=== PATIENT | female | born 1965 | race Caucasian/White ===

== ENCOUNTER → 2023-07-02 14:41 | Outpatient (REF) | payer BC, SELFPAY ==
[2023-07-02 16:20] LABS: INR 1.67; PT 19.8 Sec (11.4-14.6)
[2023-07-02 16:21] LABS: APTT 53.4 Sec (23.4-35.0)
== END ==
LOC: REG 14:41
PROVIDERS: ATTENDING PHYSICIAN Nurse Practitioner; REFERRING PHYSICIAN Internal Medicine Gastroenterology
DX: D69.6 Thrombocytopenia, unspecified (principal); R79.1 Abnormal coagulation profile
CPT/HCPCS: 36415; 85610; 85730

== ENCOUNTER 2023-07-03 23:28 | Inpatient (IN) | payer BC, SELFPAY ==
[2023-07-03 17:50] VITALS: BP 137/71
[2023-07-03 17:52] VITALS: BP 137/71
[2023-07-03 18:08] LABS: % Basophils 0.6 % (0-2); % Eosinophils 5.3 % (0-6); % Immature Granulocytes 0.6 % (0-0.5); % Lymphocytes 9.9 % (20.5-51.1); % Monocytes 6.2 % (1.7-9.3); % Neutrophils 77.4 % (42.2-75.2); Absolute Basophils 0.1 10^3/uL (0-0.2); Absolute Eosinophils 0.8 10^3/uL (0-0.7); Absolute Immature Granulocytes 0.1 10^3/uL (0-0.05); Absolute Lymphocytes 1.4 10^3/uL (1.2-3.4); Absolute Monocytes 0.9 10^3/uL (0.1-0.6); Absolute Neutrophils 11.2 10^3/uL (1.4-6.5); Hematocrit 29.5 % (37.0-47.0); Hemoglobin 9.5 g/dL (12.0-16.0); Mean Corp Hgb Conc. 32.2 g/dL (33.0-37.0); Mean Corpuscular Hgb 25.8 pg (27.0-31.0); Mean Corpuscular Volume 80.2 fL (81.0-99.0); Mean Platelet Volume 12.2 fL (7.4-10.4); Nucleated Red Blood Cells % 0 %; Platelet Count 144 10^3/uL (130-400); Red Blood Cell Count 3.68 10^6/uL (4.20-5.40); Red Cell Dist. Width 19.4 % (11.5-14.5); White Blood Cell Count 14.4 10^3/uL (4.8-10.8)
[2023-07-03 18:33] LABS: ALT (SGPT) 26 U/L (0-35); AST (SGOT) 41 U/L (14-36); Albumin 2.4 g/dl (3.5-5.0); Alkaline Phosphatase 112 U/L (38-126); Blood Urea Nitrogen 4 mg/dl (7-17); Calcium 8.4 mg/dl (8.4-10.2); Carbon Dioxide 29 mmol/L (22-30); Chloride 97 mmol/L (98-107); Estimated Creatinine Clearance 123 ml/min; Glucose 45 mg/dl (70-99); NT-proBNP 546 pg/ml; Sodium 135 mmol/L (135-145); Total Bilirubin 1.1 mg/dl (0.2-1.3); Total Protein 6.4 g/dl (6.3-8.2); Troponin I < 0.012 ng/ml; eGFR > 60.00
[2023-07-03 19:00] VITALS: BP 155/78
[2023-07-03 19:12] LABS: Glucose - Point of Care 48 mg/dl (70-99)
--- NOTE | 2023-07-03 19:18 | PHANOTE ---
med rc note- patient stated she been taking a really old bottle of Dilaudid 4mg as needed but not in pdmp and xanax that ran put but may be her husbands
[2023-07-03 19:46] LABS: Glucose - Point of Care 61 mg/dl (70-99)
[2023-07-03] MEDS: KCL 40 MEQ PO (20:29)
[2023-07-03] MEDS: MAXIPIME 2000 MG IV (20:29)
[2023-07-03] MEDS: D5/0.9% SODIUM CHLORIDE 1000 IV (20:30)
[2023-07-03] MEDS: DILAUDID 1 MG IV (20:30)
[2023-07-03] MEDS: DUONEB 3 ML INH (20:42)
[2023-07-03 21:01] VITALS: BP 121/74
--- NOTE | 2023-07-03 21:41 | ED.GENMED ---
History of Present Illness
General
Chief Complaint: Breathing Problem
Source: patient, records and spouse
Exam Limitations: none
Time Seen by Provider: 07/03/23 19:34
Nursing documentation reviewed up to this point in time: agreed with
Travel History
Have you had any contact with someone who has COVID-19?: No
Do you have any symptoms of coronavirus? Fever > 100 degrees, chills, cough, shortness of breath, sore throat, loss of taste or smell, muscle aches, or headache?: Yes
Symptoms:: fever last pm, chills
History of Present Illness
History of Present Illness:
Patient is a 57-year-old female with a history of multiple severe medical problems as well as intubation for pneumonia and multiple episodes of pneumonia who presents to the emergency department with increasing shortness of breath, orthopnea and
pulse ox of 84% this morning. Patient had a fever last night of 101.4. Patient has chills. Patient has noted increased lower extremity swelling. Patient denies any chest pain. Patient denies any GI symptoms. Patient has a G-tube that is
supposed to be removed in the next week and was seen by GI yesterday. Patient also has a colostomy and chronic indwelling Welch.
Past History
Past History
ED Past Medical History: Fibromyalgia, GERD, HTN, Hypercholesterolemia, IDDM, Psychiatric (Depression, anxiety), Other (sciatica, PNA, GI bleeding, IBS) and Other (Cauda equina with chronic lower extremity paralysis-wheelchair bound/bedridden, RSD,
status lichen planus, Cellulitis, PCOS, Sjogrens, stage IV sacral decubitus ulcer)
ED Past Surgical History: Cholecystectomy, Orthopedic (Lumbar laminectomy April 2017, spinal fusion, right ankle surgery, Amp 2nd toe Left foot. Right great toe amputation), Urological (Suprapubic catheter) and Other (TIPS procedure, Colostomy,
right toe amputation )
Social History
Tobacco: Non-smoker
Alcohol: None
Drug: Marijuana
Personal:
Living: with family
Employment: Not employed
Family History
Family History: Other (Father with diabetes and coronary disease, mother with rheumatoid arthritis)
Review of Systems
Review of Systems
All Other Systems: ROS reviewed and negative except as documented in HPI and ROS
Constitutional: Reports fever, fatigue and chills
EENT: Reports no symptoms
Respiratory: Reports cough and trouble breathing
Cardiac: Reports no symptoms
ABD/GI: Reports no symptoms
: Reports no symptoms
Musculoskeletal: Reports edema
Skin: Reports no symptoms
Neurological: Reports no symptoms
Hematologic/Lymphatic: Reports no symptoms
Phy Exam
Physical Exam
Physical Exam:
Physical Exam
General: moderate distress, alert and appropriate, well nourished but appears chronically ill, well hydrated
HENT: Normocephalic, supple with no lymphadenopathy, no thyromegaly
Eyes: Clear sclera, conjuctiva without injection
Heart: Regular rhythm and tachycardic rate. No S3, S4. No murmur. No NVD
Lungs: moderate respiratory distress, no stridor, lung sounds with rhonchi and wheezing on the right
Abdomen: Soft, nontender, with G-tube that has localized discharge but no cellulitis and functioning colostomy BS good
Neuro: Alert and oriented x 3, CN II - XII intact, no motor focality
Skin: Lower legs with bilateral dressings
Psychiatric: well kept. interactive and cooperative
Extremities: No cyanosis, tenderness. Lower legs are wrapped bilaterally but edematous and appears to be chronic
Scores
Heart Failure Risk
Heart Failure Risk Score: Not Applicable
Heart Score for Chest Pain Patients
STEMI patient?: Not applicable
Withdrawal Assessment of Alcohol
Withdrawal Assessment Completed?: Not applicable
Course
Orders/Labs/Results
Orders:
Orders
07/03/23 17:58
Electrocardiogram (*1) Urgent
Reason for Study: Other
Other Reason for Exam: Respiratory Distress
Cardiac Monitoring- Treatment ONCE
EKG- Treatment ONCE
IV Insert/Care/Rem.- Treatment PRN
CR Chest - 2 Views Urgent
Comment:
Reason For Exam: respiratory distress
O2 Therapy [RESP] Urgent
Titrate/Wean O2 to maintain O2 sat greater than (%): 93
Special Instructions: TO MAINTAIN CONTINUOUS O2 SATS >/= 93%
Pulse Ox/cont/shift [RESP] Urgent
Quantity: 1
Special Instructions: continuous pulse ox
07/03/23 18:00
Complete Blood Count/With Diff Urgent
Comprehensive Metabolic Panel Urgent
NT-proBNP Urgent
Troponin I Urgent
07/03/23 19:49
Ipratropium/Albuterol Sulfate [Duoneb] 3 ml INH R NOW ONE
Potassium Chloride [KCl] 40 meq PO NOW STA
07/03/23 19:55
Cefepime HCl [Maxipime] 2,000 mg IV NOW STA
07/03/23 20:00
Dextrose 5%/0.9%Sodchl 1000 ml [D5/0.9% Sodium Chloride] 1,000 ml IV 200 mls/hr
07/03/23 20:25
HYDROmorphone [Dilaudid] 1 mg IV NOW STA
07/03/23 21:00
KCl 40 Meq/D5.9%Sodchl 1000 ml [D5/0.9% with KCL 40 MEQ] 40 meq in 1,000 ml IV 200 mls/hr
07/03/23 22:30
Accucheck [Bedside Glucose Monitoring] DIRECTED
Frequency: Other frequency
Other frequency: now
07/03/23 22:48
DIETARY CONSULT Routine
Reason for Consult: hypoalbumenia
Urine Culture Reflexed from UA [Urinalysis Reflex To Culture] Urgent
Date Specimen was Collected: 07/03/23
Time Specimen was Collected: 23:39
07/03/23 22:59
Consult Infectious Disease [INFECTIOUS DISEASE CONSULT] Routine
Consulting Provider: Janet Amato
Was physician already notified: No
Reason for consult: sepss bilat pna
Consult Notification Routine
Specialty to Notify: Infectious Disease
WOUND/OSTOMY CONSULT Routine
Reason for Consult: sacral decub, gtube pus
07/03/23 23:00
Admit/Transfer Patient As Directed
Co-Sign Provider:
Level of Care: Inpatient admission
Assign to:: ICU
Physician / Group: abby daly
Diagnosis: sepsis 2/2 bilat pna,hypoxi resp fail sacral decub, hypoK, hypoglycemia
Reason for Hospitalization: sepsis 2/2 bilat pna,hypoxi resp fail sacral decub, hypoK, hypoglycemia
Expected length of stay greater than two midnights?: Yes
ELOS- Estimated Length of Stay in days: 5
I certify the patient meets the requirements for IP care: Yes
Code Status As Directed
Resuscitation Status: Full Code
07/03/23 23:05
Lactate Level [Lactic Acid] Routine
Blood Culture Q30M
SORAYA Source: Blood/Venous
Specimen Description:
Blood Culture Q30M
SORAYA Source: Blood/Venous
Specimen Description:
Wound Culture [Wound/Abscess/Other Culture] Urgent
SORAYA Source: Abdomen
Specimen Description:
Date Specimen was Collected: 07/03/23
Time Specimen was Collected: 22:48
Comment: gtube
07/03/23 23:06
Consult Notification Routine
Specialty to Notify: Marketing Financial Analyst
Marketing Financial Analyst Consult Routine
Consulting Provider: Blair Maloney
Was physician already notified: No
Reason for consult: sepsis /hypoxic resp failure 2/2 bilat pna
07/04/23 00:02
Acetaminophen [Tylenol] 650 mg PO Q4HPRN PRN
07/04/23 00:30
Acetylcysteine 10% [Mucomyst 10%] 4 ml INH R Q6HPRN PRN
Albuterol [ProAIR HFA INHALER] 1 puff INH R Q4HPRN PRN
Dextrose 50%-Water [Dextrose 50% Syringe] 12.5 grams IV [id number] PRN
Ferrous Sulfate [Feosol] 325 mg PO [id number]
Glucagon [GlucaGen] 1 mg IM PRN PRN
HydrOXYZINE [Atarax] 10 mg PO TIDPRN PRN
Ipratropium/Albuterol Sulfate [Duoneb] 3 ml INH R Q6HPRN PRN
Lactated Ringers [Lr] 1,000 ml IV 100 mls/hr
07/04/23 00:30
Activity As Directed
Activity Level: As Tolerated
Bedside Glucose Monitoring As Directed
Frequency: AC&HS
Comment: Change to q6h if pt on TPN, tube feeding or not eating
Intake/ Output As Directed
Frequency: Per unit guidelines
Vital Signs As Directed
Frequency: Per unit guidelines
Weight As Directed
Frequency: Daily
O2 Therapy [RESP] Routine
Nasal Cannula Liter Flow: 5 LPM
Titrate/Wean O2 to maintain O2 sat greater than (%): 92
Pulse Ox/spot Check [RESP] Routine
Quantity: 1
Rx Incentive Spirometry [RESP] Routine
Frequency: q1h while awake
Speech Therapy Eval & Treat Routine
DX Deep Vein Thrombosis Video Routine
DX Deep Vein Thrombosis Video Routine
07/04/23 06:00
Complete Blood Count/With Diff IN AM
Comprehensive Metabolic Panel IN AM
Meropenem [Merrem] 1,000 mg IV Q8H
07/04/23 07:30
Insulin Aspart Corrective Mod [Novolog Flexpen-Moderate Resistance] See Protocol SC AC
07/04/23 08:00
Ascorbic Acid [Vitamin C] 500 mg PO BID
Baclofen [Lioresal] 10 mg PO BID
Gabapentin [Neurontin] 600 mg PO TID
Lactulose [Duphalac/Chronulac] 10 grams PO BID
Rifaximin [Xifaxan] 550 mg PO BID
lidocaine 1 patch TOPICAL DAILY
magnesium oxide 400 mg PO BID
omeprazole 40 mg PO DAILY
oxybutynin chloride 15 mg PO DAILY
venlafaxine 225 mg PO DAILY
07/04/23 Dinner
1800 calorie (15 carb) Diabetic
07/04/23 18:00
Enoxaparin Sodium [Lovenox] 30 mg SC QPM
simvastatin [Zocor] 20 mg PO QPM
07/04/23 22:00
pramipexole 1.5 mg PO HS
07/05/23 06:00
Complete Blood Count/With Diff IN AM
Comprehensive Metabolic Panel IN AM
07/06/23 06:00
Complete Blood Count/With Diff IN AM
Comprehensive Metabolic Panel IN AM
07/07/23 06:00
Complete Blood Count/With Diff IN AM
Comprehensive Metabolic Panel IN AM
07/08/23 06:00
Complete Blood Count/With Diff IN AM
Comprehensive Metabolic Panel IN AM
Abnormal Lab Results
07/03/23 07/03/23 07/03/23
18:00 19:10 19:44
WBC 14.4 H 10^3/uL
(4.8-10.8)
RBC 3.68 L 10^6/uL
(4.20-5.40)
Hgb 9.5 L g/dL
(12.0-16.0)
Hct 29.5 L %
(37.0-47.0)
MCV 80.2 L fL
(81.0-99.0)
MCH 25.8 L pg
(27.0-31.0)
MCHC 32.2 L g/dL
(33.0-37.0)
RDW 19.4 H %
(11.5-14.5)
MPV 12.2 H fL
(7.4-10.4)
Abs Immat Gran (auto) 0.1 H 10^3/uL
(0-0.05)
Absolute Neuts (auto) 11.2 H 10^3/uL
(1.4-6.5)
Absolute Monos (auto) 0.9 H 10^3/uL
(0.1-0.6)
Absolute Eos (auto) 0.8 H 10^3/uL
(0-0.7)
Immature Gran % 0.6 H %
(0-0.5)
Neutrophils % 77.4 H %
(42.2-75.2)
Lymphocytes % 9.9 L %
(20.5-51.1)
Potassium 3.0 L mmol/L
(3.5-5.1)
Chloride 97 L mmol/L
(98-107)
BUN 4 L mg/dl
(7-17)
Creatinine 0.4 L mg/dL
(0.6-1.0)
Glucose 45 L* mg/dl
(70-99)
Lactic Acid
AST 41 H U/L
(14-36)
Albumin 2.4 L g/dl
(3.5-5.0)
POC Glucose 48 L* mg/dl 61 L mg/dl
(70-99) (70-99)
07/03/23 07/03/23
22:53 23:05
WBC
RBC
Hgb
Hct
MCV
MCH
MCHC
RDW
MPV
Abs Immat Gran (auto)
Absolute Neuts (auto)
Absolute Monos (auto)
Absolute Eos (auto)
Immature Gran %
Neutrophils %
Lymphocytes %
Potassium
Chloride
BUN
Creatinine
Glucose
Lactic Acid 2.3 H mmol/L
(0.7-2.0)
AST
Albumin
POC Glucose 231 H mg/dl
(70-99)
07/03/23 18:00
07/03/23 18:00
Vital Signs
Initial and Last Documented VS:
Initial Vital Signs
Temp Pulse Resp BP Pulse Ox
98.4 F 103 29 137/71 99
07/03/23 17:50 07/03/23 17:50 07/03/23 17:50 07/03/23 17:50 07/03/23 17:50
Last Documented Vital Signs
Temp Pulse Resp BP Pulse Ox
98.4 F 122 30 146/39 98
07/03/23 17:50 07/03/23 22:00 07/03/23 22:00 07/03/23 22:00 07/03/23 21:20
*Radiology
Radiology exam reviewed: radiology read reviewed (Severe diffuse pneumonia)
*Pulse Oximetry
Patient hypoxic: yes
Comment: 75% on room air
*EKG
Interpreted by ED Provider?: Yes
EKG Intrepretation Date: 07/03/23
EKG Intrepretation Time: 21:47
Interpretation: abnormal
Comparison EKG: changes noted
Heart Rate: 102
Rate: tachycardiac
Rhythm: sinus
[place]: left axis deviation
Interval: normal interval
QRS Pattern: normal QRS
Ischemia: non-specific ST changes
*[employer] Interpretation
Rate: tachycardiac
Interpretation: normal
Heart Rate: 106
Rhythm: sinus
*Critical Care Note
Total Time (30-74mins, 75-104mins- exclusive of procedures): 35 minutes
Update Note
Update Note:
Patient has been intubated before and had a trach. The pneumonia is severe on chest x-ray. Patient actually clinically looks better than chest x-ray. Patient will be admitted
ED Attending Note
-
Portions of this chart may have been created with voice recognition software.� Occasional wrong word or��sound alike� substitutions may have occurred due to the inherent limitations of voice recognition software.
Discharge Plan
Departure
Patient Disposition: Admit
Date of Disposition: 07/03/23
Time of Disposition: 21:48
Admit to: ICU
Admit to doctor: Hospitalist
Presentation/result/management discussed w/ accepting MD/DO: Hospitalist
Patient with high blood pressure during this ER visit?: Yes
Condition: Serious
Covid-19: Negative COVID-19
Discharge Problem:
Bilateral pneumonia, Hypoglycemia, Respiratory insufficiency
Interventions
Interventions:
*Risk Screen - Suicide Last Done: 07/03/23 17:50
*General Assessment Last Done: 07/03/23 17:50
*Neglect/Abuse Screening Last Done: 07/03/23 17:50
ED- Fall Risk Assessment Last Done: 07/03/23 21:33
*ED COVID-19 Vaccine History Last Done: 07/03/23 17:50
ED- Cardiac Assessment Last Done: 07/03/23 21:33
ED- Pulmonary Assessment Last Done: 07/03/23 21:33
[2023-07-03] MEDS: D5/0.9% with KCL 40 MEQ 1000 IV (21:44)
[2023-07-03 22:00] VITALS: BP 146/39
--- NOTE | 2023-07-03 22:22 | HPS.HSE ---
Addendum entered and electronically signed by Charles Bear MD 07/03/23 23:15:
I saw and examined the patient.
The LIVESTOCK COUNTER or PA's note was reviewed and I agree with the note.
Comment:
HPI
57F paraplegic due to Cauda equina syndrome, HX AspPNA, hypoxic RF, Chronic opiate dependence/chronic pain syndrome
CHOI cirrhosis , HX VDRF 2/2 PNA being Trached and PEGed who has gone through rehab and has had 1 episode of pneumonia since then and presents today with hypoxia as well as fever chills cough shortness of breath.
POX CXR for severe bilateral pneumonia on chest x-ray.
Patient's pulse ox was 75% on RA on arrival .
PMHX
Fibromyalgia, GERD, HTN, Hypercholesterolemia, IDDM, Psychiatric (Depression, anxiety), Other (sciatica, PNA, GI bleeding, IBS) and Other (Cauda equina with chronic lower extremity paralysis-wheelchair bound/bedridden, RSD, status lichen planus,
Cellulitis, PCOS, Sjogrens, stage IV sacral decubitus ulcer)
PSHX
Cholecystectomy, Orthopedic (Lumbar laminectomy April 2017, spinal fusion, right ankle surgery, Amp 2nd toe Left foot. Right great toe amputation), Urological (Suprapubic catheter) and Other (TIPS procedure, Colostomy, right toe amputation )
SHX;
Non-smoker
Alcohol: None
Drug: Marijuana
Personal:
Living: with family
FHX (Father with diabetes and coronary disease, mother with rheumatoid arthritis)
Reviewed VS: Afebrile Tachycardic Tacypnic Normotensive POx mid 90 on MFO2
PE
Gen: moderate distress, chronically ill looking
HEENT: anicteric
Neck: supple no JVD
Lungs: in respiratory distress, POS rhonchi and wheezing on the right filed
Cor: ST, RRR S1 S2
Abdomen: Soft, nontender, with G-tube
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
MS: Lower legs with bilateral dressings
Psych: appropriate
Data
WCC 14s
Hgb 9.5 - baseline mid 8s
nl Na
K 3.0 s/p PO KCL40 + IV KCL Vick 40 @ ER
CO2 29
nl Cr nl GFR
BG 49
NEG TPNI
pBNP 546
Alb 2.4
07/03/23 CXR
Severe bilateral multifocal pneumonia, progressed.
Last hospitalist admission 06/08/2023 - 06/12/2023
DC DIAGNOSES:
1. Acute hypoxic respiratory insufficiency.
2. Acute toxic metabolic encephalopathy.
3. Aspiration pneumonia.
4. Catheter associated urinary tract infection.
5. Chronic opiate dependence/chronic pain syndrome.
6. Non alcoholic steatohepatitis (CHOI) cirrhosis.
7. Stage IV sacral decubital wound.
8. Cauda equina syndrome with paraplegia.
ASSESSMENT & PLAN
Sepsis 2/2 B/l severe PNA
Acute Hypoxic RI supported by NC O2
On PO diet at home - despite PEG
Normotensive as of now
HX Asp PNA complicated by VDRF with Trach and PEG
Closed Trach now
HX chronic Welch Catheter associated UTI with Pseudomonas, Enterococcus ( VRE)
HX vanco allergy
- lactate
- BCx 2
- Empiric IV Meropenem for now
- LR IVF
- O2 support
- ST to screen for Nutrition
- ID consult for ABx of choice
Symptomatic hypoglycemia due to took Asaprt and missed meal
- cont. D5 NS
- Hypoglycemic protocol
- held Aspart and Lantus
- ISS mod
Unkempt, disheveled and poor personal hygine
Malodorous - from stage IV sacral decube ?
Pus underneath the PEG - local infection
Chr Colostomy
Chr stable moderate Anemic Hgb mid 9s
Severe hypoalbuminemia - suspect 2/2 cirrhosis
Chr FTT at home
- Shift Nurse Manager consult for interim PEG TF to improve Nutrition
- Wd care and colostomy consult
DVT Px: LMWH
Code: Full code
ICU
Total Critical Care Time___55__ minutes.
I was immediately available to the patient and staff. I personally examined, reviewed labs, diagnostic images/reports, interpretations, treatment plans, discussed patient care with other providers and family or caregivers (if patient is unable to
make decisions), entered orders as appropriate and documented the medical record.
Original Note:
Family Physician
-
Family Physician: Albert Glover
Chief Complaint
-
fever sob cough
History of Present Illness
57-year-old female from home who states she shortness of breath x 1 day with fever and chills 1 1.F at home. She reports a yellow-white productive cough for the past day. She reports taking her aspart insulin today but did not get a chance to eat
because the nurse came to visit. When she arrived in the ER she had a blood sugar of 45 and was given IV dextrose drip. She was given a sandwich and apple juice to eat. She also reports yellow pus around her G-tube site for the past 3 to 5 days
that she does flush it daily but does not use it to eat. She is unkept and disheveled. She reports she has a stage IV chronic sacral wound with wound care coming twice a week to her home.
Patient with past medical history of cauda equina syndrome/paraplegia bed and wheelchair-bound, sacral decub wound stage IV probing to bone, bilateral lower extremity wounds, chronic opiate dependence chronic pain syndrome/fibromyalgia, DM 2,
pneumonia, aspiration pneumonia, chronic dysphagia, RLS, HTN, HLD, IBS, Sjogren's syndrome, chronic normocytic anemia, obesity, CHOI cirrhosis
Medical History
Past Medical History
Past Medical History: Reports Other
Additional Past Medical History:
Migraines, sciatica, neuropathy, hypertension, hyperlipidemia, colostomy, GERD, IBS, portal hypertension, suprapubic catheter, PCOD, ambulatory dysfunction, DJD, fibromyalgia, osteoarthritis, RSD, diabetes, eczema, nonhealing ulcers decubitus,Lichen
planus, anxiety and depression, anemia, history of cauda equina syndrome, Sjogren's syndrome, follows Jennings's for sacral decubitus ulcer, ulcer of the right foot
Past Surgical History: Reports Other
Additional Past Surgical History:
suprapubic catheter, spinal fusion, cholecystectomy, ORIF left ankle, bilateral knee surgery, dermoid cyst surgery, shoulder arthroscopy, cardiac catheterization, debridement of the right foot, partial removal of the lymph node in the bilateral
thigh, left hematoma removal from the left thigh, distantly surgery, rhinoplasty, arthroscopy acute repair of the right meniscus in the right knee, left ovarian cyst surgery, D&C, arthroscopic removal of left knee, laminectomy and discectomy,
anterior-posterior spinal fusion L5-S1, surgical dilatation of the stenotic urethra, osteomyelitis the jaw with sepsis, amputation of the second toe, removal of second toe, colostomy, debridement of the wound, suprapubic urostomy, laminectomy, TIPS
procedure
Social History
Tobacco: Non-smoker
Alcohol: None
Drug: None
Personal:
Living: With Family
Employment: Disabled
Family History
Family History: Not pertinent
Allergies / Home Medications
Allergies reflects when Allergies were last updated in [employer].
Home Medications with original date entered in [employer]
Allergy/Medication List:
Allergies
Allergy/AdvReac Type Severity Reaction Status Date / Time
mirtazapine [From Remeron] Allergy Unknown Unknown Verified 06/08/23 18:07
adhesive Allergy Rash to Verified 06/08/23 18:07
Cardiac
Monitor
Sticker
vancomycin Allergy Unknown Verified 06/08/23 18:07
nitrofurantoin AdvReac Oral ulcers Verified 06/08/23 18:07
[From Macrobid]
sulfamethoxazole AdvReac bleeding Verified 06/08/23 18:07
[From Bactrim]
Home Medications
albuterol sulfate 90 mcg/actuation aerosol inhaler 1 puff inhalation R Q4HPRN PRN SOB/WHEEZE 12/14/18
rifaximin 550 mg tablet (Xifaxan) 550 mg PO BID Gastrointestinal Issue 08/15/21
baclofen 10 mg tablet 10 mg PO BID Muscle Spasms 03/03/22
insulin aspart U-100 100 unit/mL (3 mL) subcutaneous pen (Novolog FlexPen U-100 Insulin aspart) 20 unit SC AC Diabetes 03/03/22
lidocaine 5 % topical patch 1 patch topical DAILY right shoulder 03/03/22
ipratropium 0.5 mg-albuterol 3 mg (2.5 mg base)/3 mL nebulization soln 3 ml inhalation R Q6HPRN PRN sob 11/11/22
metoprolol succinate 50 mg tablet,extended release 24 hr (Toprol XL) 50 mg PO DAILY Blood Pressure 11/11/22
lactulose 20 gram/30 mL oral solution 10 g PO BID constipation 01/12/23
acetaminophen 325 mg tablet 650 mg PO Q6HPRN PRN mild pain/fever 06/08/23
acetylcysteine 100 mg/mL (10 %) solution 4 ml inhalation R Q6HPRN PRN sob 06/08/23
ascorbic acid (vitamin C) 500 mg tablet (Vitamin C) 500 mg PO BID Supplement 06/08/23
ferrous sulfate 325 mg (65 mg iron) tablet 325 mg PO MOWEFR Supplement 06/08/23
hydrocortisone 1 % topical cream (Preparation H Hydrocortisone) 1 applic topical QID PRN hemorrhoidal pain/discomfort 06/08/23
insulin aspart U-100 100 unit/mL (3 mL) subcutaneous pen (Novolog FlexPen U-100 Insulin aspart) 6 unit SC HS PRN snack 06/08/23
magnesium oxide 400 mg PO BID Electrolyte Repletion 06/08/23
methenamine hippurate 1 gram tablet 1 g PO BID infection prevention 06/08/23
multivitamin with minerals 1 tab PO DAILY Supplement 06/08/23
pramipexole 1.5 mg tablet 1.5 mg PO HS Neurological Condition 06/08/23
gabapentin 300 mg capsule 600 mg PO TID 07/03/23
hydroxyzine HCl 10 mg tablet 10 mg PO TIDPRN PRN itching 07/03/23
insulin glargine U-300 conc 300 unit/mL (3 mL) subcutaneous pen (Toujeo Max U-300 SoloStar) 50 unit SC HS 07/03/23
omeprazole 40 mg capsule,delayed release 40 mg PO DAILY 07/03/23
oxybutynin chloride 15 mg tablet,extended release 24 hr 15 mg PO DAILY 07/03/23
simvastatin 20 mg tablet (Zocor) 20 mg PO QPM 07/03/23
sodium hypochlorite 0.125 % solution (Dakin's Solution) 1 applic topical DAILY sacrum, thighs 07/03/23
venlafaxine 225 mg tablet,extended release 24 hr 225 mg PO DAILY 07/03/23
Review of Systems
-
History Source: Patient
A 12 point ROS was completed and negative except as noted: Yes
Constitutional: Reports Fever and Chills
EENT: Denies Sore Throat or Runny Nose
Respiratory: Reports Cough; Denies Trouble Breathing
Cardiac: Denies Chest Pain, Diaphoresis, Palpitations or Syncope
Abdomen/GI: Reports Other (Chronic colostomy, yellow pus under bumper of G-tube); Denies Abdominal Pain, Nausea, Vomiting, Diarrhea or Constipated
: Reports Welch (Chronic Welch present on admission)
Musculoskeletal: Reports Other (Restless leg); Denies Joint Pain or Edema
Skin: Reports Other (Chronic stage IV sacral decub); Denies Itching or Rash
Neurological: Denies Dizzy or Headache
Endocrine: Reports No Symptoms
Hematologic/Lymphatic: Reports No Symptoms
Psych: Reports Calm
Physical Exam
Vital Signs
Vital Signs
Temp Pulse Resp BP Pulse Ox
98.4 F 122 30 146/39 98
07/03/23 17:50 07/03/23 22:00 07/03/23 22:00 07/03/23 22:00 07/03/23 21:20
Physical Exam
General: Pain and Fever; No Chills
HEENT: NormoCephalic, Anicteric, PERRLA, [place] Conjunctivae and No Ptosis
Respiratory: Rhonchi (Bilaterally throughout both lung benedict); No Wheezes or Rales
Cardiac: S1/S2 and Tachycardia (Sinus); No Murmur, Rub, Gallop or Peripheral Edema
GI: Soft, Non Tender, Normal Bowel Sounds, No Hepatosplenomegaly, Ostomy and Other (Chronic colostomy, yellow pus under bumper of G-tube)
Rectal: Deferred by Provider
Genito-urinary: Welch (Chronic present admission dark yellow in color)
Musculoskeletal: No Clubbing, No Cyanosis and No Edema
Skin: Warm, Dry, Decubitus Ulcers (Sacrum) and Other (Disheveled unkempt appearance, malodorous smell in room)
Neuro: AO x 3 and No Motor Deficits; No Slurred Speech, Facial Droop or Tremors
Psych: Calm
Laboratory Results
-
07/03/23 18:00
07/03/23 18:00
Laboratory Results
Total Bilirubin 1.1 mg/dl (0.2-1.3) 07/03/23 18:00
AST 41 U/L (14-36) H 07/03/23 18:00
ALT 26 U/L (0-35) 07/03/23 18:00
Alkaline Phosphatase 112 U/L (38-126) 07/03/23 18:00
Troponin I < 0.012 ng/ml 07/03/23 18:00
Impression/Plan
-
Impression/plan:
Admit to ICU
#Acute hypoxic respiratory failure 2/2 severe bilateral multifocal pneumonia
#Sepsis 2/2 severe bilateral PNA
#Hx aspiration pneumonia due to underlying dysphagia
79% RA, 90% 3 L nasal cannula
WBC 14.4 HR 122, 98.4, 146/39
-IV meropenem
-Consult ID
- consult intensivitst
-Blood cultures x 2
-IV LR
-Sputum culture
-Incentive spirometry
-Follow CBC, BMP
-PT/OT/case management eval
-Consult speech screen for oral nutrition-Hx aspiration PNA
-Consult dietary hypoalbuminemia
CXR: Severe bilateral multifocal pneumonia progressed
#Acute hypoglycemia/DM 2
BS 45
Patient given dextrose 200 cc an hour and ate sandwich with apple juice
-Accu-Cheks with SSI, check HgbA1c
-Hold Toujeo 50 units subcu at bedtime, NovoLog 6 units SQ at bedtime as needed, NovoLog FlexPen 20 units subcu a.m.
#Hypokalemia
K3.0 KCl 40 Meq p.o. and IV K rider 40 meq
follow bmp
# Acute on chronic sacral decubital wounds Malodourous /stage IV probing to bone
-Consult wound care
#Chronic Welch catheter
#Hx Pseudomonas, Enterococcus Faecium VRE in the urine June 08, 2023
check u/a clinical cytopathologist
#Essential hypertension -stable.
-Continue Toprol XL 50 mg daily
#Chronic microcytic anemia
Hgb 9.5 appears baseline for patient
#Chronic opiate dependence/chronic pain syndrome/fibromyalgia
-Continue baclofen, gabapentin
#CHOI/cirrhosis -stable.
-Continue lactulose, Xifaxan
#Bilateral lower extremity wounds resolved
#Cauda equina syndrome/paraplegia -bed and wheelchair-bound.
#RLS
-Continue pramipexole 1.5 mg at bedtime
#Hyperlipidemia
-Continue Zocor 20 mg every afternoon
#IBS/left-sided colostomy chronic
#Chronic hypomagnesemia
Continue Mag-Ox 40 mg twice daily
#Sjogren's syndrome
#Obesity due to excess calories�BMI 33.9 kg
#Hypoalbuminemia
-Consult dietary
DVT prophylaxis
Subcu Lovenox
Full code
[2023-07-03 22:55] LABS: Glucose - Point of Care 231 mg/dl (70-99)
[2023-07-03 23:00] VITALS: BP 149/48
[2023-07-03 23:36] LABS: Lactic Acid 2.3 mmol/L (0.7-2.0)
[2023-07-04] VITALS (26 sets, daily range): BP systolic 89–167; BP diastolic 45–144; BMI 32.4
[2023-07-04] MEDS: TYLENOL 650 MG PO (00:07)
[2023-07-04 00:27] LABS: Urine Albumin Trace (Neg - Trace); Urine Bilirubin Negative (Negative); Urine Glucose Negative (Negative); Urine Ketone Negative (Negative); Urine Leukocyte 2+ (Negative); Urine Nitrite Positive (Negative); Urine Occult Blood 4+ (Negative); Urine Specific Gravity 1.015 (<1.030); Urine Urobilinogen Negative (Neg - 1+)
[2023-07-04 00:28] LABS: Urine Character Slightly Cloudy (Clear); Urine Color Yellow
[2023-07-04 00:33] LABS: Urine Amorphous Seen; Urine Bacteria Few (Negative); Urine White Cell >100 /HPF (0-5)
[2023-07-04] MEDS: LIORESAL 10 MG PO ×3 (01:38→19:35)
[2023-07-04] MEDS: NEURONTIN 600 MG PO ×4 (01:38→22:50)
[2023-07-04] MEDS: DILAUDID 1 MG IV ×4 (01:39→22:42)
[2023-07-04] MEDS: STERILE WATER FOR INJECTION IV (01:44)
--- NOTE | 2023-07-04 01:47 | PTCARENOTE ---
Patient received from ED, awake and alert. Very restless, verbalizing pain 9/10 to R shoulder, SP tube site, BL knees and BLLE. Provider notified. Patient stated she takes Hydromorphone 8mg PO, and was taking ketamine PO PRN for pain control. She
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 Patient stated her cares for her at home, with daily dressing changes. She changes her own colostomy appliance. Patient O2 titrated to 8L to keep sat above
92. Patient tachypneic and tachycardic. Alert and oriented, soft spoken. Patient requesting to sit all the way up in bed, orthopneic, multiple pillows placed behind her back. Multiple dressings present to bl ischial wounds, sacral ulcer was open to
air on admission with malodorous drainage. Patient stated she uses Dakins wet to dry at home. Colostomy appliance full with formed stool, unable to empty appliance. Colostomy appliance changed by using patient's supply. BLLE dressed and elevated on
pillows.
[2023-07-04] MEDS: DILAUDID 0.5 MG IV ×2 (03:17→09:15)
--- NOTE | 2023-07-04 03:56 | PTCARENOTE ---
Patient with Dexcom on R shoulder able to monitor blood glucose levels. Patient's result was 180 at this time. Otherwise assessment unchanged, patient continues to be restless in bed. Able to reposition with assist.
[2023-07-04] MEDS: LR 1000 IV (04:19)
[2023-07-04 04:54] LABS: % Basophils 0.4 % (0-2); % Eosinophils 1.6 % (0-6); % Immature Granulocytes 0.5 % (0-0.5); % Monocytes 4.8 % (1.7-9.3); % Neutrophils 87.7 % (42.2-75.2); Absolute Basophils 0.1 10^3/uL (0-0.2); Absolute Eosinophils 0.4 10^3/uL (0-0.7); Absolute Immature Granulocytes 0.1 10^3/uL (0-0.05); Absolute Lymphocytes 1.1 10^3/uL (1.2-3.4); Absolute Monocytes 1.1 10^3/uL (0.1-0.6); Absolute Neutrophils 19.5 10^3/uL (1.4-6.5); Hematocrit 29.1 % (37.0-47.0); Hemoglobin 9.3 g/dL (12.0-16.0); Mean Corpuscular Hgb 26.3 pg (27.0-31.0); Mean Corpuscular Volume 82.2 fL (81.0-99.0); Mean Platelet Volume 12.2 fL (7.4-10.4); Nucleated Red Blood Cells % 0 %; Platelet Count 128 10^3/uL (130-400); Red Blood Cell Count 3.54 10^6/uL (4.20-5.40); Red Cell Dist. Width 19.4 % (11.5-14.5); White Blood Cell Count 22.2 10^3/uL (4.8-10.8)
[2023-07-04 05:18] LABS: Lactic Acid 1.7 mmol/L (0.7-2.0)
[2023-07-04 05:27] LABS: ALT (SGPT) 23 U/L (0-35); AST (SGOT) 52 U/L (14-36); Albumin 2.2 g/dl (3.5-5.0); Alkaline Phosphatase 122 U/L (38-126); Blood Urea Nitrogen 3 mg/dl (7-17); Calcium 7.7 mg/dl (8.4-10.2); Carbon Dioxide 29 mmol/L (22-30); Chloride 105 mmol/L (98-107); Estimated Creatinine Clearance 120 ml/min; Glucose 158 mg/dl (70-99); Potassium 4.1 mmol/L (3.5-5.1); Sodium 134 mmol/L (135-145); Total Bilirubin 1.3 mg/dl (0.2-1.3); Total Protein 5.8 g/dl (6.3-8.2); eGFR > 60.00
[2023-07-04] MEDS: MERREM 1000 MG IV ×3 (05:38→22:50)
[2023-07-04] MEDS: STERILE WATER FOR INJECTION 20 ML IV ×3 (05:38→23:16)
[2023-07-04 07:45] LABS: Glucose - Point of Care 218 mg/dl (70-99)
--- NOTE | 2023-07-04 08:09 | CON.INTV ---
Consultation
Consultation Request
Date/Time Consultation Requested: 07-04-23
Date/Time Consultation Performed: 07-04-23
Requesting Provider: Hospitalist
Performing Provider: Dr Maloney
Reason for Consultation: dyspnea
Medical History
-
Chief Complaint: dyspnea
History of Present Illness:
Mrs Dillon Ortez is a 57/W adm 07-03 with 1 d h/o dyspnea, productive cough, fever 101.4F and chills at home.
Chronically ill patient with multitude of medical conditions, deconditioned, bed-wheelchair bound.
Reported increasing ROYCE edema, yellow discharge around G tube for 3-5 d. Found POx 75% on RA upon arrival and G 45 (took aspart insulin but did not get a chance to eat earlier at home), CXR with bilateral infiltrates, started on empiric meropenem
Seen at ICU, O2 12L, POx 94%. Conversant, fidgety, in pain from sacral ulcers. Reports light yellow sputum, denies hemoptysis, CP, n/v/d
Not on home O2
Past Medical History
Past Medical History: Other (see A&P for PMH/PSH)
Social History
Tobacco: Non-smoker
Alcohol: None
Drug: None
Personal:
Living: With Family
Employment: Disabled
Family History
Family History: Reviewed & Not Pertinent
Allergies / Home Medications
Allergies
Allergy/AdvReac Type Severity Reaction Status Date / Time
mirtazapine [From Remeron] Allergy Unknown Unknown Verified 06/08/23 18:07
adhesive Allergy Rash to Verified 06/08/23 18:07
Cardiac
Monitor
Sticker
vancomycin Allergy Unknown Verified 06/08/23 18:07
nitrofurantoin AdvReac Oral ulcers Verified 06/08/23 18:07
[From Macrobid]
sulfamethoxazole AdvReac bleeding Verified 06/08/23 18:07
[From Bactrim]
Home Medications
Medication Instructions Recorded Confirmed Last Taken Type
albuterol sulfate 90 mcg/actuation 1 puff inhalation R Q4HPRN PRN 12/14/18 07/03/23 Unknown History
aerosol inhaler SOB/WHEEZE
rifaximin 550 mg tablet (Xifaxan) 550 mg PO BID Gastrointestinal 08/15/21 07/03/23 07/03/23 History
Issue
baclofen 10 mg tablet 10 mg PO BID Muscle Spasms 03/03/22 07/03/23 07/03/23 History
insulin aspart U-100 100 unit/mL 20 unit SC AC Diabetes 03/03/22 07/03/23 01/12/23 History
(3 mL) subcutaneous pen (Novolog
FlexPen U-100 Insulin aspart)
lidocaine 5 % topical patch 1 patch topical DAILY right 03/03/22 07/03/23 Unknown History
shoulder
ipratropium 0.5 mg-albuterol 3 mg 3 ml inhalation R Q6HPRN PRN sob 11/11/22 07/03/23 Unknown History
(2.5 mg base)/3 mL nebulization
soln
metoprolol succinate 50 mg 50 mg PO DAILY Blood Pressure 11/11/22 07/03/23 07/03/23 History
tablet,extended release 24 hr
(Toprol XL)
lactulose 20 gram/30 mL oral 10 g PO BID constipation 01/12/23 07/03/23 07/03/23 History
solution
acetaminophen 325 mg tablet 650 mg PO Q6HPRN PRN mild 06/08/23 07/03/23 07/02/23 History
pain/fever
acetylcysteine 100 mg/mL (10 %) 4 ml inhalation R Q6HPRN PRN sob 06/08/23 07/03/23 Unknown History
solution
ascorbic acid (vitamin C) 500 mg 500 mg PO BID Supplement 06/08/23 07/03/23 Unknown History
tablet (Vitamin C)
ferrous sulfate 325 mg (65 mg 325 mg PO MOWEFR Supplement 06/08/23 07/03/23 Unknown History
iron) tablet
hydrocortisone 1 % topical cream 1 applic topical QID PRN 06/08/23 07/03/23 Unknown History
(Preparation H Hydrocortisone) hemorrhoidal pain/discomfort
insulin aspart U-100 100 unit/mL 6 unit SC HS PRN snack 06/08/23 07/03/23 Unknown History
(3 mL) subcutaneous pen (Novolog
FlexPen U-100 Insulin aspart)
magnesium oxide 400 mg PO BID Electrolyte Repletion 06/08/23 07/03/23 Unknown History
methenamine hippurate 1 gram tablet 1 g PO BID infection prevention 06/08/23 07/03/23 07/03/23 History
multivitamin with minerals 1 tab PO DAILY Supplement 06/08/23 07/03/23 Unknown History
pramipexole 1.5 mg tablet 1.5 mg PO HS Neurological Condition 06/08/23 07/03/23 07/02/23 History
gabapentin 300 mg capsule 600 mg PO TID 07/03/23 07/03/23 07/03/23 History
hydroxyzine HCl 10 mg tablet 10 mg PO TIDPRN PRN itching 07/03/23 07/03/23 Unknown History
insulin glargine U-300 conc 300 50 unit SC HS 07/03/23 07/03/23 07/02/23 History
unit/mL (3 mL) subcutaneous pen
(Toujeo Max U-300 SoloStar)
omeprazole 40 mg capsule,delayed 40 mg PO DAILY 07/03/23 07/03/23 07/03/23 History
release
oxybutynin chloride 15 mg 15 mg PO DAILY 07/03/23 07/03/23 07/03/23 History
tablet,extended release 24 hr
simvastatin 20 mg tablet (Zocor) 20 mg PO QPM 07/03/23 07/03/23 07/02/23 History
sodium hypochlorite 0.125 % 1 applic topical DAILY sacrum, 07/03/23 07/03/23 Unknown History
solution (Dakin's Solution) thighs
venlafaxine 225 mg tablet,extended 225 mg PO DAILY 07/03/23 07/03/23 07/03/23 History
release 24 hr
Review of Systems
-
History Source: Patient
Constitutional: Fatigue
Respiratory: Cough and Trouble Breathing
Neuro: Weakness
Vitals / Labs / Diagnostic Testing
Vital Signs
Temp Pulse Resp BP Pulse Ox
98.2 F 104 26 149/86 98
07/04/23 07:25 07/04/23 06:47 07/04/23 06:47 07/04/23 06:47 07/04/23 06:30
Lab Data
07/04/23 04:27
07/04/23 04:26
Diagnostic Testing:
Physical Exam
-
HEENT: Normocephalic and Moist Mucous Membranes
Cardiovascular: Regular Rhythm, Murmur (n), Peripheral Edema (n) and Calf Tenderness (n)
Respiratory: Wheeze (n) and Rhonchi
GI: Soft, Non Tender and Other (PEG)
Neurology: Awake, Oriented and No Motor Deficits
Skin: Warm
General: Respiratory Distress (mild)
Assessment
-
Assessment:
Mrs Dillon Ortez is a 57/W adm 07-03 with 1 d h/o dyspnea, productive cough, fever 101.4F and chills at home. Chronically ill patient with multitude of medical conditions, deconditioned, bed-wheelchair bound. Reported increasing ROYCE edema,
yellow discharge around G tube for 3-5 d. Found POx 75% on RA upon arrival and G 45 (took aspart insulin but did not get a chance to eat earlier at home), CXR with bilateral infiltrates, started on empiric meropenem
Impression:
Acute hypoxemic resp failure
Bilateral pulm infiltrates
Leukocytosis
Resolved lactic acidosis
Abnormal UA, through suprapubic catheter which is changed once a month
Sacral decubitus ulcer, chronic
Conditions ACID TESTER:
Asp pneumonia, CAUTI, adm 06-08 to , received meropenem and linezolid
Prolonged hospital stay 12/2022-03/2023.
Ventilator dependent respiratory failure
Tracheal aspirate 02-16: +Ps aerug
MRSA PNA-bilateral extensive
MDRO UTI
Acute refractory hypoxemic respiratory failure on MV
Intubated 01/14/23; Extubated 01/19/23
Reintubated 01/27/23; Extubated 02/04/2023
Reintubated 02/06/2023
s/p Tracheostomy- 02/09/23
S/p exchange of tracheostomy due to airway leak on 02-25: 6 [place]
s/p PEG 02-24
Severe bilateral lung disease, persistent likely has progressed to fibrosis
Covid x 2 neg 01/12 & 01/25/23, viral panel negative 01/14, sputum cx neg 01/14
s/p RHC 01-14 with PCWP 20, hyperdynamic CO/CI, moderate-sev PH
s/p bronchoscopy 01/27/23 no endobronchial abnls, bronch wash sent x 2
Chronic hypercarbic respiratory failure, ABG(s) 7.43/53, 7.41/60
Chronic PEG tube, scheduled for discontinuation by [facility] on second week of July 2023 as the device is not in use
Suprapubic catheter in place
Neuropathy
Sciatica nerve pain
Cauda equina syndrome, wheelchair-bound
Hyperlipidemia
Hypertension
GERD
IBS, status post diversion colostomy
Portal hypertension/chronic LFT elevation/history of hepatic nonalcohol cirrhosis with TIPS
Fibromyalgia
RSD
Diabetes mellitus type 2
Nonhealing ulcers-decubitus
Lichen planus
Anxiety/depression
Chronic anemia
Sjogren's syndrome
Morbid obesity
Nonsmoker
Plan:
Admitted to ICU for hypoxic respiratory failure bilateral pulmonary infiltrates
Extensive past medical history, multiple admissions, including admissions for pneumonia
Not on home O2, states she did not qualify home O2 upon last discharge
Confirms history of acute dyspnea, cough and fever at home
States that sputum is light yellow, denies hemoptysis
Currently on oxygen 12 L nasal cannula saturation up to 94%
Very fidgety which is contributing to difficulty with evaluation of POx wave form
Continue O2 protocol, evaluate O2 needs PTD
Patient has had recurrent pneumonias, is known that her pulmonary parenchyma had evolved into fibrosis on CT Dec 2022
Continue to use her meropenem as there is a change in chest x-ray that could be secondary to aspiration pneumonia versus progression of interstitial lung disease of unknown etiology
Procure sputum sample for culture now
Intermittent CXR
Observing off systemic CS for now
ID consulted
Continue IVFs
Midline
Sacral wound care
DVT proph
Stable for transfer to telemetry or IMU
No critical care time charged today
D/w Mrs Bertrand and LEI MAKER
Diagnostic tests:
CXR 07-03-23, PA/lat, c/w 06-08-23, current film underpenetrated but worsening of bilateral pulm infiltrates
--- NOTE | 2023-07-04 08:30 | PTCARENOTE ---
Received pt @ change of shift. Pt. awake, oriented x3, anxious/restless/crying out/thrashing in bed, reporting severe whole body pain. No pain meds available on JUL, Dr. Franco made aware- see JUL. ST on monitor, HR up to 120's, Dr. Maloney @ bedside
aware. SpO2 94% on 10LMF. RR up to 30's @ x's. +BS, abd soft/round/obese. Peg in place, clamped/not in use. Meds admin whole w water, no s/so of asp. L colostomy site w brown/formed stool. Suprapubic catheter in place, cloudy/yellow urine. Mx
wound dressings in place. #22 R hand w IVF infusing; # 22 L FA patent, dressing c/d/i. Pt.'s call jairo curtis in reach.
[2023-07-04] MEDS: EFFEXOR XR 225 MG PO (08:31)
[2023-07-04] MEDS: MAGNESIUM OXIDE 500 MG PO ×2 (08:31→19:35)
[2023-07-04] MEDS: DAKIN'S SOLUTION 0.125% 1/4 STRENGTH 473 ML TOPICAL (08:31)
[2023-07-04] MEDS: VITAMIN C 500 MG PO ×2 (08:31→19:34)
[2023-07-04] MEDS: XIFAXAN 550 MG PO ×2 (08:31→19:34)
[2023-07-04] MEDS: PROTONIX 40 MG PO (08:31)
[2023-07-04] MEDS: DITROPAN 7.5 MG PO ×2 (08:32→19:35)
[2023-07-04] MEDS: LIDOCAINE 4% PATCH 1 PATCH TOPICAL (08:32)
[2023-07-04] MEDS: DUPHALAC/CHRONULAC 10 GRAMS PO (08:32)
--- NOTE | 2023-07-04 10:00 | PTOTSP ---
Dysphagia Evaluation
Per clinical swallow evaluation this date, and video swallow study on 06/10/23, patient presents with a grossly functional oropharyngeal swallow. VSE from 06/10 w/ concern for esophageal residue with recommendations for GI workup if s/s of
aspiration persist.
Consider GI workup to r/o bottom up aspiration in the presence of b/l PNA. Could also consider ENT workup in the presence of weak/breathy vocal quality.
Recommend:
(1) Regular solids (IDDSI 7), thin liquids (IDDSI 0)
(2) General aspiration precautions
(3) Meds as tolerated
(4) ONLY feed when SaO2 >90% and RR <30
(5) Consider GI & ENT consults
(6) COMMERCIAL HORTICULTURE INSTRUCTOR service to follow up at the acute care level and provide dysphagia tx as indicated
[2023-07-04] MEDS: NOVOLOG FLEXPEN-MODERATE RESISTANCE 3 UNITS SC (10:49)
--- NOTE | 2023-07-04 11:49 | CON.ID ---
Consultation
-
Date/Time Consultation Requested: July 03, 2023 [id number]
Date/Time Consultation Performed: July 04, 2023 1150
Requesting Provider: Dr. Darell Franco
Performing Provider: Dr. Janet mAato
Reason for Consultation: Sepsis, bilateral PNA
Chief Complaint / Past History
Chief Complaint
Shortness of breath.
History of Present Illness
57-year-old female with diabetes mellitus, cirrhosis, functional paraplegia, chronic pain from RS.D, hx prolonged hospitalization from January 12 to March 02, 2023 with ARDS, Pseudomonas, MRSA pneumonia, VRE in the urine, had trach and PEG, sacral
decubitus status post diverting ileostomy.�Recent hospitalization 06/08 to 06/12/23 with pneumonia and CAUTI s/p linezolid x7d and meropenem x 4d then outpt high dose cipro for another 3d. She passed swallow study in June. She was scheduled for PEG
removal July 08. Patient developed several days of worsening shortness of breath with cough productive of yellowish to white sputum. Visiting nurse noted pulse ox in the 70s. Patient therefore sent to the ER. She is febrile. White count of
14.4. Hypoxic. Chest x-ray shows bilateral interstitial opacities. She is currently on mid flow oxygen. She was started on meropenem. Patient reports the suprapubic catheter site is very uncomfortable. Catheter due for change on Thursday. She
is asking for pain medicine. She is also complaining of drainage around PEG site.
Past History
Additional Past Medical History:
DM
CHOI cirrhosis hx tips
Portal hypertension
Functional paraplegic
Neurogenic bladder with chronic suprapubic catheter
Fibromyalgia
GERD
HTN
Dyslipidemia
Depression/anxiety
Sciatica
GI bleed
IBS
Cauda equina syndrome
RSD
Chronic pain
Stage IV sacral decubitus s/p diverting ileostomy
Migraine
DJD
Sjogren syndrome
Ileostomy parastoma repair
Cholecystectomy
Laminectomy
toe amputations
Allergy History:
mirtazapine [From Remeron] Allergy (Unknown, Verified 06/08/23 18:07)
Unknown
adhesive Allergy (Verified 06/08/23 18:07)
Rash to Quality Control Inspector Sticker
vancomycin Allergy (Verified 06/08/23 18:07)
Unknown
nitrofurantoin [From Macrobid] Adverse Reaction (Verified 06/08/23 18:07)
Oral ulcers
sulfamethoxazole [From Bactrim] Adverse Reaction (Verified 06/08/23 18:07)
bleeding
Medications Reviewed: Yes
Current Antibiotics:
Meropenem 1g IV q8
Social History
Tobacco: Non-Smoker
Alcohol: None
Drug: None
Personal:
Family History
Family History: Not Pertinent
Review of Systems
Review of Systems
General: Fever, Chills and Change in Appetite
HEENT: Negative Headache or Pharyngitis
Cardiovascular: Negative Chest Pain
Respiratory: Dyspnea, Cough and Sputum Production
Gasteroenterology: Other (no diarrhea); Negative Nausea or Vomiting
Genital / Urological: Negative Hematuria or Flank Pain
Endocrine: Weakness
Skin / Hair / Nails: Negative Rash
Neurological: Negative Headache or Dizziness
All systems: All other systems were reviewed and were negative
Vital Signs
Temp Pulse Resp BP Pulse Ox
98.6 F 122 22 114/101 94
07/04/23 11:01 07/04/23 10:30 07/04/23 10:30 07/04/23 11:00 07/04/23 10:55
Selected Entries
07/04/23
00:05
Temp 100.4 F H
Physical Exam
Physical Exam
Constitutional: Acutely Ill, Chronically Ill and Other (Appears to be in pain.)
Eyes: Sclera Anicteric
Cardiovascular: S1/S2 and Other (tachycardic)
Pulmonary: Rales (bilateral)
Gastrointestinal: Soft, Non Tender, Non Distended and Other (PEG tube site with brownish exudate, no erythema)
Genito-Urinary: Suprapubic Tenderness (SPC catheter site without drainage.)
Extremities: Edema
Neurological: AO x 3
Lab / Diagnostic Study Results
07/04/23 04:27
07/04/23 04:26
Abs Immat Gran (auto) 0.1 10^3/uL (0-0.05) H 07/04/23 04:27
Absolute Neuts (auto) 19.5 10^3/uL (1.4-6.5) H 07/04/23 04:27
Absolute Lymphs (auto) 1.1 10^3/uL (1.2-3.4) L 07/04/23 04:27
Absolute Monos (auto) 1.1 10^3/uL (0.1-0.6) H 07/04/23 04:27
Absolute Basos (auto) 0.1 10^3/uL (0-0.2) 07/04/23 04:27
Immature Gran % 0.5 % (0-0.5) 07/04/23 04:27
Neutrophils % 87.7 % (42.2-75.2) H 07/04/23 04:27
Lymphocytes % 5.0 % (20.5-51.1) L 07/04/23 04:27
Monocytes % 4.8 % (1.7-9.3) 07/04/23 04:27
Eosinophils % 1.6 % (0-6) 07/04/23 04:27
Basophils % 0.4 % (0-2) 07/04/23 04:27
Lactic Acid 1.7 mmol/L (0.7-2.0) 07/04/23 04:40
Microbiology Results
Micro:
07/04/23 00:03 Urine Culture - Pending
Urine
07/03/23 23:05 Wound Culture - Pending
Abdomen Gram Stain - Pending
07/03/23 23:05 Blood Culture - Pending
Blood/Venous
07/03/23 23:05 Blood Culture - Pending
Blood/Venous
07/03/23 CXR: Severe bilateral multifocal pneumonia, progressed.
Assessment / Plan
# Bilateral pneumonia
# Acute hypoxemic respiratory failure
- hx of Pseudomonas and MRSA in lungs.
- Check sputum for cx
-Agree with meropenem.
- Add IV Vancomycin (she tolerated Vanco last year).
# Possible CAUTI
-c/o SPC site pain
-h/x of Pseudomonas and VRE colonization in urine.
- Continue meropenem.
-Unable to use linezolid due to venlafaxine. Give fosfomycin.
# Fever, worsening leukocytosis due to pneumonia.
- Follow blood cx's.
-Trend temps/wbc.
--- NOTE | 2023-07-04 12:00 | PTCARENOTE ---
pt. reassessed, remains anxious/restless, reporting pain meds are not working and pain is still 10/[address] Franco made aware and further orders received, see MAR. During episodes of heightened anxiety, pt. w increased work of
breathing/tachypnea. Desats into low 80's, NRB applied and SpO2 recovers back into 90's. Remains on 10LMF, NRB PRN for panic attacks. to bedside, updated on plan of care. Pt.'s call jairo w in reach.
--- NOTE | 2023-07-04 12:53 | W.PN.HOSP.TC ---
Today's Communication/Plan
-
pain control
cap IVF
Abx per ID
IMU tx
Assessment / Plan
Assessment / Plan
Assessment:
Acute hypoxic RF on 10L NC
Severe sepsis POA with lactic acidosis
Bilateral pulm infiltrates consistent with acute pneumonia, likely aspiration
Pulmonary fibrosis from prior aspiration PNA episodes
Chronic hypercarbic respiratory failure
- on PO diet, likely some degree of aspiration. Has PEG not in use
- noted pulm eval and fibrosed lungs
- continue Vanco/Merrem per ID; follow cultures
- s/p sepsis protocol IVF with improved Lactate
CAUTI
Chronic suprapubic catheter
- on Merrem, Fosfomycin per ID; follow cultures
Chronic PEG tube, scheduled for discontinuation by GI on second week of July 2023 as the device is not in use
Neuropathy
Sciatica nerve pain
Cauda equina syndrome, wheelchair-bound
Fibromyalgia
RSD
Sjogren's syndrome
- continue Gabapentin
- patient reports Dilaudid usage q6h but no filled Dilaudid in >1 year per PDMP review
- will make available here only given severity of pain and patient will need to follow up with outpatient Pain specialist.
Chronic anemia
Hyperlipidemia
Hypertension
GERD
IBS, status post diversion colostomy
Portal hypertension/chronic LFT elevation/history of hepatic nonalcohol cirrhosis with TIPS
Diabetes mellitus type 2
- now patient is eating, resume insulin + SSI
Anxiety/depression
Stage 4 sacral decubitus ulcer
- wound care
DVT ppx: LMWH
Code: Full, patient considering DNI status
Anticipated Discharge: > 48 hours
Subjective/Interval History
-
Date of Service: July 04, 2023
in obvious writhing pain from chronic conditions such as CRPS
currently being treated for UTI and PNA
Is contemplating DNI status at least but states she has a strong will to live
Objective Data
-
Labs:
Laboratory Results
07/04/23 07/04/23
04:26 04:27
WBC 22.2 H
Hgb 9.3 L
Hct 29.1 L
Plt Count 128 L
Sodium 134 L
Potassium 4.1 D
Chloride 105
Carbon Dioxide 29
BUN 3 L
Creatinine 0.4 L
Glucose 158 H
Calcium 7.7 L
Total Bilirubin 1.3
AST 52 H
ALT 23
Alkaline Phosphatase 122
Vital Signs:
Vital Signs
Temp Pulse Resp BP Pulse Ox
98.6 F 122 22 114/101 94
07/04/23 11:01 07/04/23 10:30 07/04/23 10:30 07/04/23 11:00 07/04/23 10:55
I&O
07/03/23 07/04/23 07/05/23
06:59 06:59 06:59
Intake Total 1140 / 1140
Output Total 900 / 900
Balance 240 / 240
Physical Exam
-
General: Appears in Distress and Pain
HEENT: Normocephalic and Atraumatic
Respiratory: Rhonchi; Negative Wheezes
Cardiac: Regular Rhythm and S1/S2
GI: Ostomy
Neuro: AO x 3
Data Reviewed
-
Total Time Spent with Patient (in minutes): 45
Labs: Labs Reviewed by me
--- NOTE | 2023-07-04 13:00 | PHA.VAN.IN ---
Assessment
- Assessment
Renal Function: Appears similar to baseline
Maximum Temperature: 100.4
Minimum Temperature: 98.2
Concomitant Antimicrobials: Meropenem
Historical Micro: History of MRSA infection
- Previous Dosing Experience
Previous Regimen: Vanc 1500mg IV q12H
Date of Regimen: 12/2022
Provided Trough of: 14.6
Provided AUC of: 547
Patient's SCR is: Similar to previous dosing experience
Patient's weight is: Similar to previous dosing experience
AUC Dosing Plan
- Dosing Variables
Dosing Weight (kg): 93.7
Dosing CrCl (ml/min): 120
Vd coefficient (L/kg): 0.6
- Empiric Dosing
Initial / Loading Dose: No loading dose. First dose Vanc 1500mg--administration pending
Maintenance Regimen: Vanc 1500mg IV q12H
Estimated AUC (mcg*h/mL): 553
Estimated Peak (mcg*h/mL): 37.4
Estimated Trough (mcg/ml): 12.6
Estimated Half Life (H): 6.7
- Monitoring
No levels ordered at this time: Consider levels after 05/04 1800 dose
Pharmacokinetics Vancomycin I
- -
Patient Age: 57
Patient Sex: Female
Vancomycin Day #: 1
Indication: Pulmonary/Respiratory
Requesting Provider: Lm
Pertinent Antimicrobial Allergies:
Sulfa = bleeding; Nitrofurantoin = oral ulcers; Vanco = 'I can't move or talk.' Aware of interaction. Will monitor appropriately.
Height / Weight:
Height 5 ft 7 in
Actual Weight 93.7 kg
IBW in k.6
Adjusted BW in k.4
- Vital Signs / Lab Results
Temp Pulse Resp BP Pulse Ox
98.6 F 122 22 114/101 94
07/04/23 11:01 07/04/23 10:30 07/04/23 10:30 07/04/23 11:00 07/04/23 10:55
Lab Results - Hematology
07/03/23 07/04/23
18:00 04:27
WBC 14.4 H 22.2 H
Lab Results - Chemistry
07/03/23 07/04/23
18:00 04:26
BUN 4 L 3 L
Creatinine 0.4 L 0.4 L
Estimated Creat Clear 123 120
Albumin 2.4 L 2.2 L
07/03/23 07/04/23
23:05 04:40
Lactic Acid 2.3 H 1.7
Lab Results - Urine
07/04/23
00:03
Urine Nitrite (Reflex) Positive A
Leukocyte Esterase Rfl 2+ A
Urine WBC (Reflex) >100 A
Urine Bacteria (Reflex) Few A
[2023-07-04 13:16] LABS: Glucose - Point of Care 197 mg/dl (70-99)
[2023-07-04] MEDS: VANCOCIN 300 ML IV ×2 (13:44→17:32)
[2023-07-04] MEDS: VANCOCIN 300 MG IV ×2 (13:44→17:32)
[2023-07-04] MEDS: LR IV (14:30)
[2023-07-04] MEDS: DILAUDID 4 MG PO (14:38)
--- NOTE | 2023-07-04 16:09 | PTCARENOTE ---
S/P 2nd dose of IV pain prn, pt reported pain meds are still not working. Dr. Franco made aware and to bedside, further orders received- see MAR. Pt. currently asleep, respirations even, SpO2 95% on 10LMF, RR in 20's, and HR remains elevated into
110's. remains @ bedside. Pt.'s call gill w in reach.
[2023-07-04] MEDS: NOVOLOG FLEXPEN-MODERATE RESISTANCE SC ×2 (17:31→17:32)
[2023-07-04] MEDS: MONUROL 3 GM PO (17:32)
[2023-07-04] MEDS: LIPITOR 10 MG PO (17:33)
[2023-07-04] MEDS: LOVENOX 40 MG SC (17:33)
[2023-07-04 17:40] LABS: Glucose - Point of Care 134 mg/dl (70-99)
[2023-07-04] MEDS: DUPHALAC/CHRONULAC PO (19:35)
--- NOTE | 2023-07-04 19:46 | PTCARENOTE ---
Pt received at 19:00, Ox3, restless and anxious. C/O pain 'everywhere', moaning and yelling out, unable to rate pain. PRN IVP dilaudid given. Pt remains on 10L midflow NC with NRB PRN. Breath sounds coarse t/o, tachypneic and dyspneic. HR 120s,
sinus tach. +1 pitting LE edema. Colostomy remains intact, formed brown stool. PEG remains in place, clamped. Suprapubic catheter in place, cloudy yellow urine. Safe environment maintained, call gill within reach, pt repositioned multiple times.
[2023-07-04 21:32] LABS: Glucose - Point of Care 143 mg/dl (70-99)
[2023-07-04] MEDS: MIRAPEX, GENERIC 1.5 MG PO (22:50)
[2023-07-05] VITALS (17 sets, daily range): BP systolic 96–149; BP diastolic 51–89; BMI 32.4
[2023-07-05] MEDS: DUPHALAC/CHRONULAC PO (00:41)
--- NOTE | 2023-07-05 01:28 | PTCARENOTE ---
Received patient in bed, following commands, complaining of pain 'everywhere'. AAOx3, prn IV dilaudid given. Sinus tachycardia, 110s. BP stable, 110s/90s. Weak palpable radial pulses, doppler pedal pulses bilaterally. On 15 liters midflow and
nonrebreather, when not moving, saturating 98%. While eating without nonrebreather on, patient desaturates to 78% on 15 liters midflow. Recovers quickly with nonrebreather back on. Lung sounds diminished throughout. Colostomy intact, formed stool.
PEG tube clamped, split gauze in place. Suprapubic lyle draining cloudy, norman urine. Stage 4 sacral wound care done, cleansed with dakins and packed wound with dakins soaked gauze, foam on top. Foams on other posterior wounds replaced. Bilateral
lower extremity dressings CDI. PIVs WNL. Washed patient, changed gown, and sheets. Hourly rounding and patient safety checks ongoing, call gill within reach.
[2023-07-05] MEDS: DILAUDID 1 MG IV ×2 (03:02→06:44)
--- NOTE | 2023-07-05 04:13 | PTCARENOTE ---
Patient woke up agitated, anxious, dropped to 70s with nonrebreather off. RT to bedside, put on and maxed on high flow nasal cannula and nonbreather, now saturating 99%. Monitoring and safety checks ongoing.
[2023-07-05] MEDS: STERILE WATER FOR INJECTION 20 ML IV ×2 (05:41→14:55)
[2023-07-05] MEDS: VANCOCIN 300 ML IV ×2 (05:41→18:10)
[2023-07-05] MEDS: VANCOCIN 300 MG IV ×2 (05:41→18:10)
[2023-07-05] MEDS: MERREM 1000 MG IV ×3 (05:41→21:55)
[2023-07-05] MEDS: DAKIN'S SOLUTION 0.125% 1/4 STRENGTH 473 ML TOPICAL (07:36)
[2023-07-05] MEDS: LIORESAL 10 MG PO (07:37)
[2023-07-05] MEDS: VITAMIN C 500 MG PO (07:37)
[2023-07-05] MEDS: EFFEXOR XR 225 MG PO (07:37)
[2023-07-05] MEDS: XIFAXAN 550 MG PO (07:37)
[2023-07-05] MEDS: DITROPAN 7.5 MG PO (07:37)
[2023-07-05] MEDS: DUPHALAC/CHRONULAC 10 GRAMS PO (07:37)
[2023-07-05] MEDS: MAGNESIUM OXIDE 500 MG PO (07:38)
[2023-07-05] MEDS: PROTONIX 40 MG PO (07:38)
[2023-07-05] MEDS: DILAUDID 4 MG PO (07:38)
[2023-07-05] MEDS: NEURONTIN 600 MG PO (07:38)
[2023-07-05] MEDS: LIDOCAINE 4% PATCH 1 PATCH TOPICAL (07:40)
[2023-07-05 08:15] LABS: Glucose - Point of Care 141 mg/dl (70-99)
--- NOTE | 2023-07-05 08:30 | PTCARENOTE ---
Received pt @ change of shift. Awake, screaming out 'help me,' attempting to sit all the way up in bed. Anxious/restless/thrashing. Pt. reported severe whole body pain- see MAR. Assisted pt. w repositioning. ST on monitor up to 130's, Dr. Franco
aware. SpO2 tenuous on max HFNC, NRB PRN for desaturation/panic attack episodes to keep SpO2 >88%. Tachypneic into 30's. + BS, abd soft/round/obese. Peg tube in place, clamped, not in use. L colostomy w soft/formed stool. Suprapubic w cloudy/yellow
urine. LE wound dressings redressed. Sacral/ischial dressings intact. #22 R wrist and #22 L FA patent, dressing c/d/i. Constant emotional support given, provided all nursing measures in attempted to improve discomfort. Safe environment maintained.
[2023-07-05 08:32] LABS: % Basophils 0.5 % (0-2); % Eosinophils 1.4 % (0-6); % Immature Granulocytes 1.3 % (0-0.5); % Lymphocytes 3.8 % (20.5-51.1); % Monocytes 5.3 % (1.7-9.3); % Neutrophils 87.7 % (42.2-75.2); Absolute Basophils 0.2 10^3/uL (0-0.2); Absolute Eosinophils 0.5 10^3/uL (0-0.7); Absolute Immature Granulocytes 0.5 10^3/uL (0-0.05); Absolute Lymphocytes 1.3 10^3/uL (1.2-3.4); Absolute Monocytes 1.8 10^3/uL (0.1-0.6); Absolute Neutrophils 30.2 10^3/uL (1.4-6.5); Hematocrit 33.2 % (37.0-47.0); Hemoglobin 10.1 g/dL (12.0-16.0); Mean Corp Hgb Conc. 30.4 g/dL (33.0-37.0); Mean Corpuscular Hgb 25.8 pg (27.0-31.0); Mean Corpuscular Volume 84.7 fL (81.0-99.0); Mean Platelet Volume 11.9 fL (7.4-10.4); Nucleated Red Blood Cells % 0 %; Platelet Count 178 10^3/uL (130-400); Red Blood Cell Count 3.92 10^6/uL (4.20-5.40); Red Cell Dist. Width 20.1 % (11.5-14.5); White Blood Cell Count 34.5 10^3/uL (4.8-10.8)
[2023-07-05] MEDS: NOVOLOG FLEXPEN-MODERATE RESISTANCE SC ×3 (08:36→18:09)
[2023-07-05] MEDS: DUONEB 3 ML INH ×4 (08:38→19:57)
[2023-07-05 09:08] LABS: ALT (SGPT) 24 U/L (0-35); AST (SGOT) 50 U/L (14-36); Albumin 2.3 g/dl (3.5-5.0); Alkaline Phosphatase 127 U/L (38-126); Blood Urea Nitrogen 5 mg/dl (7-17); Calcium 8.6 mg/dl (8.4-10.2); Carbon Dioxide 33 mmol/L (22-30); Chloride 101 mmol/L (98-107); Estimated Creatinine Clearance 120 ml/min; Glucose 137 mg/dl (70-99); Potassium 4.2 mmol/L (3.5-5.1); Sodium 139 mmol/L (135-145); Total Bilirubin 1.5 mg/dl (0.2-1.3); Total Protein 6.3 g/dl (6.3-8.2); eGFR > 60.00
[2023-07-05] MEDS: ATIVAN 1 MG IV ×3 (09:23→22:08)
--- NOTE | 2023-07-05 09:26 | W.PN.INTV ---
Today's Communication / Plan
Recommendations
CXR, ABG, NSS
GOC
Assessment
-
Assessment:
Mrs Dillon Ortez is a 57/W adm 07-03 with 1 d h/o dyspnea, productive cough, fever 101.4F and chills at home. Chronically ill patient with multitude of medical conditions, deconditioned, bed-wheelchair bound. Reported increasing ROYCE edema,
yellow discharge around G tube for 3-5 d. Found POx 75% on RA upon arrival and G 45 (took aspart insulin but did not get a chance to eat earlier at home), CXR with bilateral infiltrates, started on empiric meropenem
Impression:
Acute hypoxemic resp failure
Bilateral pulm infiltrates
Leukocytosis
Resolved lactic acidosis
Abnormal UA, through suprapubic catheter which is changed once a month
Sacral decubitus ulcer, chronic
Conditions STONE CARVER:
Asp pneumonia, CAUTI, adm 06-08 to , received meropenem and linezolid
Prolonged hospital stay 12/2022-03/2023.
Ventilator dependent respiratory failure
Tracheal aspirate 02-16: +Ps aerug
MRSA PNA-bilateral extensive
MDRO UTI
Acute refractory hypoxemic respiratory failure on MV
Intubated 01/14/23; Extubated 01/19/23
Reintubated 01/27/23; Extubated 02/04/2023
Reintubated 02/06/2023
s/p Tracheostomy- 02/09/23
S/p exchange of tracheostomy due to airway leak on 02-25: 6 Shiley
s/p PEG 02-24
Severe bilateral lung disease, persistent likely has progressed to fibrosis
Covid x 2 neg 01/12 & 01/25/23, viral panel negative 01/14, sputum cx neg 01/14
s/p RHC 01-14 with PCWP 20, hyperdynamic CO/CI, moderate-sev PH
s/p bronchoscopy 01/27/23 no endobronchial abnls, bronch wash sent x 2
Chronic hypercarbic respiratory failure, ABG(s) 7.43/53, 7.41/60
Chronic PEG tube, scheduled for discontinuation by [facility] on second week of July 2023 as the device is not in use
Suprapubic catheter in place
Neuropathy
Sciatica nerve pain
Cauda equina syndrome, wheelchair-bound
Hyperlipidemia
Hypertension
GERD
IBS, status post diversion colostomy
Portal hypertension/chronic LFT elevation/history of hepatic nonalcohol cirrhosis with TIPS
Fibromyalgia
RSD
Diabetes mellitus type 2
Nonhealing ulcers-decubitus
Lichen planus
Anxiety/depression
Chronic anemia
Sjogren's syndrome
Morbid obesity
Nonsmoker
Plan:
Admitted to ICU for hypoxic respiratory failure, bilateral pulmonary infiltrates
Extensive past medical history, multiple admissions, including admissions for pneumonia
Not on home O2, states she did not qualify home O2 upon last discharge
Confirmed history of acute dyspnea, cough and fever at home
Stated that sputum is light yellow, denies hemoptysis
Intermittent agitation continues
Responds to ativan IV dosing
Tachycardic in 140s but not hypotensive
NSS bolus 500 mL
CXR, ABG now
Continue HFNC/NRM
She is voicing that does not want intubation
called, communicated with him patient's request not to receive intubation, he disagrees, I asked him to come to ICU as soon as feasible
Patient has had recurrent pneumonias, is known that her pulmonary parenchyma had evolved into fibrosis on CT Dec 2022
Continue to use her meropenem as there is a change in chest x-ray that could be secondary to aspiration pneumonia versus progression of interstitial lung disease of unknown etiology
Procure sputum sample for culture, not yet collected
Intermittent CXR
Observing off systemic CS for now
ID following
Continue IVFs
Midline
Sacral wound care
DVT proph
D/w SOUND ART INSTRUCTOR
Prognosis guarded
Critical care time: 35 min
Diagnostic tests:
CXR 07-03-23, PA/lat, c/w 06-08-23, current film underpenetrated but worsening of bilateral pulm infiltrates
Subjective Dataa
Subjective Data
Date of Service:
Date of Service: July 05, 2023
Chief Complaint: High Lift Operator Follow Up
Subjective:
Very agitated this morning, tachycardic
Calmed down her agitation with dose of Ativan IV
Review of Systems
General: Other (sedated)
Objective Data
Data Reviewed
Vital Signs / I&O / Oxygen:
Vital Signs
Temp Pulse Resp BP Pulse Ox
98.2 F 139 20 122/66 95
07/05/23 07:40 07/05/23 08:42 07/05/23 08:42 07/05/23 01:34 07/05/23 08:43
Intake and Output
07/04/23 07/05/23 07/06/23
06:59 06:59 06:59
Intake Total 1140 / 1140 300 / 300
Output Total 900 / 900 550 / 550
Balance 240 / 240 -250 / -250
SaO2 95
Nasal Cannula flow liters per 50
minute
Physical Exam
General: Respiratory Distress
HEENT: Normocephalic
Respiratory: Rhonchi
GI: Soft and Non Distended
Neurology: Other (agitated)
Skin: Dry
Labs/Micro/Reports
Lab Data
07/05/23 08:19
07/05/23 08:19
Microbiology
07/03/23 23:05 Blood/Venous Blood Culture - Preliminary
No Growth in 24 hours- Final report to follow
07/03/23 23:05 Blood/Venous Blood Culture - Preliminary
No Growth in 24 hours- Final report to follow
--- NOTE | 2023-07-05 10:08 | PHA.VAN.FU ---
Vancomycin Assessment / Plan
- Assessment
Renal Function: Stable
WBC's are: Trending Up
In the past 24 hrs, patient has been: Afebrile
Concomitant Antimicrobials: Meropenem
- Dosing Plan
Continue: Vanc 1500mg IV q12H
- Monitoring Plan
Peak Level: 2/4 at 2100
Trough Level: 2/5 at 0530
- Follow Up
Pharmacy will continue to follow.
Vancomycin Follow UP
- -
Patient Age: 57
Patient Sex: Female
Vancomycin Day #: 2
Indication: Pulmonary/Respiratory
Requesting Provider: Lm
Pertinent Antimicrobial Allergies:
Sulfa = bleeding; Nitrofurantoin = oral ulcers; Vanco = 'I can't move or talk.' Aware of interaction. Will monitor appropriately.
Height / Weight:
Height 5 ft 7 in
Actual Weight 93.7 kg
IBW in k.6
Adjusted BW in k.4
- Vital Signs / Lab Results
Temp Pulse Resp BP Pulse Ox
98.2 F 139 20 122/66 95
07/05/23 07:40 07/05/23 08:42 07/05/23 08:42 07/05/23 01:34 07/05/23 08:43
Lab Results - Hematology
07/03/23 07/04/23 07/05/23
18:00 04:27 08:19
WBC 14.4 H 22.2 H 34.5 H
Lab Results - Chemistry
07/03/23 07/04/23 07/05/23
18:00 04:26 08:19
BUN 4 L 3 L 5 L
Creatinine 0.4 L 0.4 L 0.3 L
Estimated Creat Clear 123 120 120
Albumin 2.4 L 2.2 L 2.3 L
07/03/23 07/04/23
23:05 04:40
Lactic Acid 2.3 H 1.7
Microbiology Results
07/03/23 23:05 Blood Culture - Preliminary
Blood/Venous No Growth in 24 hours- Final report to follow
07/03/23 23:05 Blood Culture - Preliminary
Blood/Venous No Growth in 24 hours- Final report to follow
[2023-07-05 10:29] LABS: Venous Blood Gas B.E. 2.2 mmol/L (-4 to +4); Venous Blood Gas HCO3 29.8 mmol/L (22-27); Venous Blood Gas O2 Sat % 98.9 %; Venous Blood Gas pCO2 62 mmHg (35-48); Venous Blood Gas pH 7.29 (7.32-7.43); Venous Blood Gas pO2 181 mmHg (30-50)
[2023-07-05 10:33] LABS: Venous Blood Gas O2 Therapy HFNC
--- NOTE | 2023-07-05 10:39 | PTCARENOTE ---
Addendum entered by Esther Jones RN 07/05/23 11:04:
During severe anxiety episode, pt. stating, she 'does not want to be intubated.' Dr. Maloney made aware. updated on pt statement by retail aide and RN. Goals of care discussion in progress.
Original Note:
At 0900 pt. remains screaming out, 'help me.' Upon entering room pt. reports severe anxiety in panic attack. HR up to 150's. Desaturation into low 80's on max HFNC. NRB applied, SpO2 improved to 88%. Dr. Franco made aware and further orders received-
see MAR. Mental status declining, minimally responsive. Spo2 98% on max HFNC. Breathing pattern remains laborious/dyspneic. Dr. Maloney to bedside. Further orders received. VBG sent to lab, awaiting results. CXR obtained @ bedside. Dr. Maloney
updated pt.'s on current condition. in route to hospital.
--- NOTE | 2023-07-05 11:26 | W.PN.ID1 ---
Date of Service
Date of Service: July 05, 2023
Today's Communication
Add azithromycin to meropenem and Vancomycin.
Prognosis guarded.
Assessment / Plan
# Severe bilateral pneumonia with progression
# Acute hypoxemic respiratory failure with progression , now on high flow oxygen
- hx of Pseudomonas and MRSA in lungs.
- Check sputum for cx
-Continue with meropenem IV (d2)
- Continue IV Vancomycin (d2) (she tolerated Vanco last year).
- Add azithromycin for atypical coverage.
- Prognosis guarded
# Possible CAUTI
-c/o SPC site pain
-h/x of Pseudomonas and VRE colonization in urine.
- Continue meropenem.
-Unable to use linezolid due to venlafaxine. s/p fosfomycin x 1 on 07/04/23
# Fever trending down
# worsening leukocytosis (on steroid)
- blood cx's neg to date.
-Trend temps/wbc.
#Additional Past Medical History:
DM
CHOI cirrhosis hx tips
Portal hypertension
Functional paraplegic
Neurogenic bladder with chronic suprapubic catheter
Fibromyalgia
GERD
HTN
Dyslipidemia
Depression/anxiety
Sciatica
GI bleed
IBS
Cauda equina syndrome
RSD
Chronic pain
Stage IV sacral decubitus s/p diverting ileostomy
Migraine
DJD
Sjogren syndrome
Ileostomy parastoma repair
Cholecystectomy
Laminectomy
toe amputations
Chief Complaint
-: Pneumonia
Subjective / Review of Systems
Critically ill.
Vital Signs / Physical Exam
Vital Signs
Vital Signs
Temp Pulse Resp BP Pulse Ox
98.6 F 139 20 122/66 95
07/05/23 11:13 07/05/23 08:42 07/05/23 08:42 07/05/23 01:34 07/05/23 08:43
Physical Exam
Constitutional: Acutely Ill and Chronically Ill
Cardiovascular: S1/S2 and Other (tachycardic)
Pulmonary: Rales
Gastrointestinal: Soft, Non Tender and Non Distended
Genito-Urinary: Clear Urine (SPC)
Neurological: Other (lethargic)
Objective Data
Lab Data
Lab Results
07/05/23 08:19
07/05/23 08:19
Estimated Creat Clear 120 ml/min 07/05/23 08:19
Lactic Acid 1.7 mmol/L (0.7-2.0) 07/04/23 04:40
Total Bilirubin 1.5 mg/dl (0.2-1.3) H 07/05/23 08:19
AST 50 U/L (14-36) H 07/05/23 08:19
ALT 24 U/L (0-35) 07/05/23 08:19
Alkaline Phosphatase 127 U/L (38-126) H 07/05/23 08:19
Most recent labs reviewed.
Micro Results:
07/03/23 23:05 Blood Culture - Preliminary
Blood/Venous No Growth in 24 hours- Final report to follow
07/03/23 23:05 Blood Culture - Preliminary
Blood/Venous No Growth in 24 hours- Final report to follow
07/04/23 00:03 Urine Culture - Pending
Urine
07/03/23 23:05 Wound Culture - Pending
Abdomen Gram Stain - Pending
07/03/23 CXR: Severe bilateral multifocal pneumonia, progressed.
07/05/23 CXR: Marked widespread bilateral predominantly alveolar opacification with progression in comparison to recent prior study, most likely representing worsening pneumonia or acute pulmonary edema.
Care Review
Plan reviewed with: Physician (Dr. Maloney)
[2023-07-05 11:48] LABS: Glucose - Point of Care 136 mg/dl (70-99)
[2023-07-05] MEDS: SOLU-MEDROL PF 40 MG IV ×2 (12:16→18:10)
[2023-07-05] MEDS: NSS 250 IV (12:16)
--- NOTE | 2023-07-05 14:02 | W.PN.HOSP.TC ---
Today's Communication/Plan
-
prn Ativan
wean O2
continue IV steroids
continue IV abx
Assessment / Plan
Assessment / Plan
Assessment:
Acute hypoxic RF on 10L NC
Severe sepsis POA with lactic acidosis
Bilateral pulm infiltrates consistent with acute pneumonia, likely aspiration
Pulmonary fibrosis from prior aspiration PNA episodes
Chronic hypercarbic respiratory failure
- on PO diet, likely some degree of aspiration. Has PEG not in use
- noted pulm evaluation and fibrosed lungs
- continue Vanco/Merrem per ID; follow cultures
- s/p sepsis protocol IVF with improved Lactate
- continue IV steroids started 07/05/23
CAUTI
Chronic suprapubic catheter
- on Merrem, Fosfomycin per ID; follow cultures
Chronic PEG tube, scheduled for discontinuation by [facility] on second week of July 2023 as the device is not in use
Neuropathy
Sciatica nerve pain
Cauda equina syndrome, wheelchair-bound
Fibromyalgia
RSD
Sjogren's syndrome
- continue Gabapentin
- patient reports Dilaudid usage q6h but no filled Dilaudid in >1 year per PDMP review
- will make available here only given severity of pain and patient will need to follow up with outpatient Pain specialist.
Chronic anemia
Hyperlipidemia
Hypertension
GERD
IBS, status post diversion colostomy
Portal hypertension/chronic LFT elevation/history of hepatic nonalcohol cirrhosis with TIPS
Diabetes mellitus type 2
- now patient is eating, resume insulin + SSI
Anxiety/depression
- Prn Ativan
Stage 4 sacral decubitus ulcer
- wound care
DVT ppx: LMWH
Code: Full, patient considering DNI status but resistant. Notified that if patient were to get intubated, would likely lead to early trach which after a prior trach would be likely permanent with permanent placement.
Total Critical Care Time 38 minutes. I was immediately available to the patient and staff. I personally examined, reviewed labs, diagnostic images/reports, interpretations, treatment plans, discussed patient care with other providers and family
or caregivers (if patient is unable to make decisions), entered orders as appropriate and documented the medical record.
Anticipated Discharge: > 48 hours
Subjective/Interval History
-
Date of Service: July 05, 2023
placed on Hi-NUPUR overnight and this morning anxious/agitated requiring IV ativan and also placed on steroids
in room
Objective Data
-
Labs:
Laboratory Results
07/05/23 07/05/23
08:19 09:33
WBC 34.5 H
Hgb 10.1 L
Hct 33.2 L
Plt Count 178 D
HCO3 Cancelled
Sodium 139
Potassium 4.2
Chloride 101
Carbon Dioxide 33 H
BUN 5 L
Creatinine 0.3 L
Glucose 137 H
Calcium 8.6
Total Bilirubin 1.5 H
AST 50 H
ALT 24
Alkaline Phosphatase 127 H
Vital Signs:
Vital Signs
Temp Pulse Resp BP Pulse Ox
98.6 F 132 20 106/51 96
07/05/23 11:13 07/05/23 12:00 07/05/23 12:00 07/05/23 12:00 07/05/23 12:00
I&O
07/04/23 07/05/23 07/06/23
06:59 06:59 06:59
Intake Total 1140 / 1140 300 / 300
Output Total 900 / 900 550 / 550
Balance 240 / 240 -250 / -250
Physical Exam
-
General: No Apparent Distress
HEENT: Normocephalic and Atraumatic
Respiratory: Rhonchi
Cardiac: Regular Rhythm, S1/S2 and Tachycardic
GI: Soft
Neuro: Sedated
Psych: Calm
Data Reviewed
-
Critical Care Time (in minutes): 38
Labs: Labs Reviewed by me
[2023-07-05] MEDS: ZITHROMAX INFUSION 250 IV (14:55)
[2023-07-05] MEDS: MUCOMYST 10% 4 ML INH ×2 (15:29→20:00)
--- NOTE | 2023-07-05 15:31 | PTCARENOTE ---
L midline placed by VAT. Pt. restless, opens eyes to verbal stimuli, eye opening <10sec. Inconsistent with nodding to yes/no questions. Pt. unable to discuss goals of care with d/t waxing/waning mental status. GOLs of care extensively
discussed with pt.'s and medical team. Pt. remains full code at this time per .
[2023-07-05] MEDS: NEURONTIN PO (17:39)
[2023-07-05 18:03] LABS: Glucose - Point of Care 143 mg/dl (70-99)
[2023-07-05] MEDS: LIPITOR 10 MG TUBE (18:10)
[2023-07-05] MEDS: LOVENOX 40 MG SC (18:10)
[2023-07-05] MEDS: NEURONTIN 600 MG TUBE ×2 (18:11→21:55)
--- NOTE | 2023-07-05 18:26 | PTCARENOTE ---
Pt.'s left bedside @ approx 1800 and pt calling out for after he left. Restless, moaning/crying out incomprehensible sounds. Severe panic attack. Pt.'s HR up to 140's, RR up to 40's, desaturation into high 70's on HFNC and NRB.
Admin PRN IV Ativan w positive effect. S/P director medicaid, HR, RR, agitation, and SPo2 improved. Remains on HFNC, Spo2 97%. Constant emotional support given.
[2023-07-05] MEDS: DUPHALAC/CHRONULAC 10 GRAMS TUBE (19:49)
[2023-07-05] MEDS: XIFAXAN 550 MG TUBE (19:50)
[2023-07-05] MEDS: MAGNESIUM OXIDE 500 MG TUBE (19:50)
[2023-07-05] MEDS: VITAMIN C 500 MG TUBE (19:50)
[2023-07-05] MEDS: DITROPAN 7.5 MG TUBE (19:50)
[2023-07-05] MEDS: LIORESAL 10 MG TUBE (19:50)
--- NOTE | 2023-07-05 20:13 | PTCARENOTE ---
Received patient in bed, drowsy, restless when woken up, responding to verbal stimuli. Nodding appropriately. Sinus tach, 120s-130s. Weak palpable radial pulses, doppler pedal pulses bilaterally. BP stable, 110s-120s/50s-60s. On 50 L, 100% high flow
nasal cannula. Lung sounds coarse and diminished throughout. Saturating 96%. Colostomy intact, formed/soft stool. PEG tube used for meds. Suprapubic lyle putting out norman, cloudy, yellow urine. Wound dressings on lower extremities CDI. Stage 4
dressing on sacrum CDI. Patient repositioned. Hourly rounding and patient safety checks ongoing.
[2023-07-05 21:13] LABS: Glucose - Point of Care 180 mg/dl (70-99)
[2023-07-05] MEDS: NOVOLOG FLEXPEN 1 UNITS SC (21:54)
[2023-07-05] MEDS: MIRAPEX, GENERIC 1.5 MG TUBE (21:55)
[2023-07-05] MEDS: NSS (PRESERVATIVE FREE) 0.5 ML IV (22:08)
--- NOTE | 2023-07-05 22:40 | PTCARENOTE ---
Patient woke up screaming, thrashing in bed, incomprehensible sounds, labored and dyspneic breathing. Asking for , 'mendez', screaming his name. Desatting to high 70s on HFNC, nonrebreather applied. Patient responds to name but does not follow
commands, continues yelling out and making indiscernible noises. PRN ativan given with positive effect. Emotional support and safety checks ongoing.
[2023-07-05 23:01] LABS: Vancomycin Peak 22.7 ug/ml (18-26)
[2023-07-06] VITALS (24 sets, daily range): BP systolic 105–146; BP diastolic 56–126; BMI 31.3
[2023-07-06] MEDS: SOLU-MEDROL PF 40 MG IV ×5 (00:02→23:14)
[2023-07-06] MEDS: STERILE WATER FOR INJECTION 20 ML IV ×4 (00:03→21:58)
[2023-07-06] MEDS: DILAUDID 1 MG IV ×3 (02:41→21:45)
[2023-07-06] MEDS: ATIVAN 1 MG IV ×3 (03:51→19:30)
[2023-07-06] MEDS: NSS (PRESERVATIVE FREE) 0.5 ML IV ×2 (03:51→10:53)
--- NOTE | 2023-07-06 03:56 | PTCARENOTE ---
Addendum entered by Unique Evans RN 07/06/23 05:26:
Heart rate increases to 140s-150s and patient desats to the 70s during attacks. Now back at baseline, 110s-120s and saturating 95%
Original Note:
Patient had another panic/anxiety attack. Woke up, thrashing arms, legs, and head in the bed. Kicking legs out of the bed, moaning and making incomprehensible sounds, not redirectable. Given prn dilaudid IV. Washed patient up, changed pull sheet and
pad. Sent labs. Hourly rounding and patient safety checks ongoing.
[2023-07-06 04:02] LABS: % Basophils 0.3 % (0-2); % Immature Granulocytes 1.1 % (0-0.5); % Lymphocytes 5.5 % (20.5-51.1); % Monocytes 3.7 % (1.7-9.3); % Neutrophils 89.4 % (42.2-75.2); Absolute Basophils 0.1 10^3/uL (0-0.2); Absolute Immature Granulocytes 0.3 10^3/uL (0-0.05); Absolute Lymphocytes 1.3 10^3/uL (1.2-3.4); Absolute Monocytes 0.9 10^3/uL (0.1-0.6); Absolute Neutrophils 21.3 10^3/uL (1.4-6.5); Hematocrit 29.2 % (37.0-47.0); Hemoglobin 8.9 g/dL (12.0-16.0); Mean Corp Hgb Conc. 30.5 g/dL (33.0-37.0); Mean Corpuscular Hgb 25.6 pg (27.0-31.0); Mean Corpuscular Volume 84.1 fL (81.0-99.0); Mean Platelet Volume 12.2 fL (7.4-10.4); Nucleated Red Blood Cells % 0 %; Platelet Count 163 10^3/uL (130-400); Red Blood Cell Count 3.47 10^6/uL (4.20-5.40); Red Cell Dist. Width 19.9 % (11.5-14.5); White Blood Cell Count 23.8 10^3/uL (4.8-10.8)
[2023-07-06 04:24] LABS: ALT (SGPT) 24 U/L (0-35); AST (SGOT) 49 U/L (14-36); Albumin 2.4 g/dl (3.5-5.0); Alkaline Phosphatase 130 U/L (38-126); Blood Urea Nitrogen 15 mg/dl (7-17); Calcium 8.4 mg/dl (8.4-10.2); Carbon Dioxide 32 mmol/L (22-30); Chloride 105 mmol/L (98-107); Estimated Creatinine Clearance 120 ml/min; Glucose 180 mg/dl (70-99); Potassium 4.9 mmol/L (3.5-5.1); Sodium 139 mmol/L (135-145); Total Bilirubin 1.2 mg/dl (0.2-1.3); Total Protein 6.2 g/dl (6.3-8.2); eGFR > 60.00
[2023-07-06 04:29] LABS: Vancomycin Trough 16.9 ug/ml (5-20)
[2023-07-06] MEDS: MERREM 1000 MG IV ×3 (05:24→21:57)
[2023-07-06] MEDS: VANCOCIN 300 ML IV (05:38)
[2023-07-06] MEDS: VANCOCIN 300 MG IV (05:38)
[2023-07-06] MEDS: NOVOLOG FLEXPEN-MODERATE RESISTANCE 1 UNITS SC ×2 (07:40→11:22)
--- NOTE | 2023-07-06 07:45 | W.PN.INTV ---
Today's Communication / Plan
Recommendations
Wean FiO2
Check cultures
Broad-spectrum antibiotics
Work on agitation
Avoid oversedation
Follow chest x-ray
Urology to change suprapubic tube
Updated at length-addressing CODE STATUS
Assessment
-
Mrs Dillon Ortez is a 57/W adm 07-03 with 1 d h/o dyspnea, productive cough, fever 101.4F and chills at home. Chronically ill patient with multitude of medical conditions, deconditioned, bed-wheelchair bound. Reported increasing ROYCE edema,
yellow discharge around G tube for 3-5 d. Found POx 75% on RA upon arrival and G 45 (took aspart insulin but did not get a chance to eat earlier at home), CXR with bilateral infiltrates, started on empiric meropenem
Acute hypoxemic resp failure
Bilateral pulm infiltrates/pneumonia
Aspiration risk
Leukocytosis
Anemia
Resolved lactic acidosis
Abnormal UA, through suprapubic catheter which is changed once a month
Sacral decubitus ulcer, chronic
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
Asp pneumonia, CAUTI, adm 06-08 to , received meropenem and linezolid
Prolonged hospital stay 12/2022-03/2023.
Ventilator dependent respiratory failure/tracheostomy tube/eventually decannulated
Tracheal aspirate 02-16: +Ps aerug
MRSA PNA-bilateral extensive
MDRO UTI
Acute refractory hypoxemic respiratory failure on MV
Intubated 01/14/23; Extubated 01/19/23
Reintubated 01/27/23; Extubated 02/04/2023
Reintubated 02/06/2023
s/p Tracheostomy- 02/09/23
S/p exchange of tracheostomy due to airway leak on 02-25: 6 Shiley
s/p PEG 02-24
Severe bilateral lung disease, persistent likely has progressed to fibrosis
Covid x 2 neg 01/12 & 01/25/23, viral panel negative 01/14, sputum cx neg 01/14
s/p RHC 08- with PCWP 20, hyperdynamic CO/CI, moderate-sev PH
s/p bronchoscopy 01/27/23 no endobronchial abnls, bronch wash sent x 2
Chronic hypercarbic respiratory failure, ABG(s) 7.43/53, 7.41/60
Chronic PEG tube, scheduled for discontinuation by [facility] EUCEDA on second week of July 2023 as the device is not in use
Suprapubic catheter in place
Neuropathy
Sciatica nerve pain
Cauda equina syndrome, wheelchair-bound
Hyperlipidemia
Hypertension
GERD
IBS, status post diversion colostomy
Portal hypertension/chronic LFT elevation/history of hepatic nonalcohol cirrhosis with TIPS
Fibromyalgia
RSD
Diabetes mellitus type 2
Nonhealing ulcers-decubitus
Lichen planus
Anxiety/depression
Chronic anemia
Sjogren's syndrome
Morbid obesity
Nonsmoker
Plan:
Tenuous, critically ill, on high FiO2, marginal saturations, tachycardia, agitated, may need to be intubated
Patient has had recurrent pneumonias, is known that her pulmonary parenchyma had evolved into fibrosis on CT Dec 2022
Supplemental oxygen as needed
High flow oxygen/BiPAP if needed/intubate mechanically ventilated if needed
Patient has expressed to some healthcare worker she does not want reintubation, however, insists on intubation if needed
Chest x-ray 07/25-widespread bilateral alveolar opacifications with progression compared to 07/03/2023 representing worsening pneumonia and/or acute pulmonary edema
Nebulizers
Aspiration precautions
Mucolytic's
Mucus clearing devices if able
Cultures reviewed-blood cultures negative
Urine culture 06/08/2023-Pseudomonas and Enterococcus
Urine culture 07/04/20236464-bpgv-fsiumfli bacilli
Sputum culture 07/06/2023-pending
Broad-spectrum antibiotics
Infectious disease following-correspondence reviewed
Urology consultation for suprapubic catheter change
May need gastroenterology to change gastrostomy tube
Agitation a real problem as was during previous admission
Patient was on ketamine
Ativan as needed
Oxycodone as needed-monitor for oversedation
Baclofen continues-chronic medication
Monitor tachycardia-suspect related to infection, and agitation
Sacral wound care
DVT prophylaxis-on Lovenox
GI prophylaxis-on pantoprazole
Early nutrition
Early mobilization/physical therapy
Dr. Burns updated 07/06/2023 at length-updated on current clinical status, aspiration pneumonia, severe agitation, and potential need for intubation/trach/long-term ventilator- reports patient would not want long-term mechanical
ventilation/mcfp-suggested honoring her wishes of not intubation-he will 'think about it'-further discussions with social and human services assistant
Critical care statement: A total of 42 minutes of critical care time was provided for this patient today. This includes management of unstable vital signs, evaluation of the patient at bedside, reviewing the patient's pertinent medical records
including radiographs, microbiology, laboratory evaluations, and discussion with primary team, consultants, pharmacy, nutrition, physical therapy, case management, charge nurse, critical care nursing, and respiratory therapy.
Diagnostic tests:
CXR 07-03-23, PA/lat, c/w 06-08-23, current film underpenetrated but worsening of bilateral pulm infiltrates
Subjective Dataa
Subjective Data
Date of Service:
Date of Service: July 06, 2023
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
Subjective:
Agitated, noncommunicative, review of systems unobtainable
Review of Systems
General: Other ( per HPI)
Objective Data
Data Reviewed
Vital Signs / I&O / Oxygen:
Vital Signs
Temp Pulse Resp BP Pulse Ox
99 F 118 25 126/81 95
07/06/23 04:00 07/06/23 06:00 07/06/23 06:00 07/06/23 06:00 07/06/23 06:00
Intake and Output
07/05/23 07/06/23 07/07/23
06:59 06:59 06:59
Intake Total 300 / 300 270 / 270
Output Total 550 / 550 600 / 600
Balance -250 / -250 -330 / -330
SaO2 95
Nasal Cannula flow liters per 50
minute
Physical Exam
General: Respiratory Distress (Mild)
HEENT: Normocephalic, Anicteric and Moist Mucous Membranes
Cardiovascular: Regular Rhythm (Tachycardia)
Respiratory: Wheeze (Forced expiratory), Crackles ( basilar), Rhonchi and Stridor (n)
GI: Soft, Non Distended and Non Tender
Neurology: Alert, No Motor Deficits and Other (agitated)
Skin: Dry, Good Color, Cyanosis (n) and Jaundice (n)
Labs/Micro/Reports
Lab Data
07/06/23 03:49
07/06/23 03:49
Laboratory Results
07/05/23
09:33
pH Cancelled
pCO2 Cancelled
pO2 Cancelled
HCO3 Cancelled
O2 Delivery Level Cancelled
Microbiology
07/04/23 00:03 Urine Urine Culture - Preliminary
Gram negative bacilli
07/03/23 23:05 Blood/Venous Blood Culture - Preliminary
No Growth in 48 hours- Final report to follow
07/03/23 23:05 Blood/Venous Blood Culture - Preliminary
No Growth in 48 hours- Final report to follow
07/03/23 23:05 Abdomen Wound Culture - Preliminary
07/03/23 23:05 Abdomen Gram Stain - Preliminary
[2023-07-06] MEDS: DUONEB 3 ML INH ×4 (07:47→19:21)
[2023-07-06] MEDS: LIDOCAINE 4% PATCH 1 PATCH TOPICAL (07:49)
[2023-07-06] MEDS: LIORESAL 10 MG TUBE ×2 (07:51→22:19)
[2023-07-06] MEDS: NEURONTIN 600 MG TUBE ×3 (07:51→22:25)
[2023-07-06] MEDS: DITROPAN 7.5 MG TUBE ×2 (07:51→22:17)
[2023-07-06] MEDS: DUPHALAC/CHRONULAC 10 GRAMS TUBE ×2 (07:51→22:18)
[2023-07-06] MEDS: NSS (PRESERVATIVE FREE) 10 ML IV (07:52)
[2023-07-06] MEDS: MAGNESIUM OXIDE 500 MG TUBE ×2 (07:52→22:20)
[2023-07-06] MEDS: XIFAXAN 550 MG TUBE ×2 (07:52→22:20)
[2023-07-06] MEDS: VITAMIN C 500 MG TUBE ×2 (07:52→22:20)
[2023-07-06] MEDS: PROTONIX IV 40 MG IV (07:52)
[2023-07-06] MEDS: DAKIN'S SOLUTION 0.125% 1/4 STRENGTH 473 ML TOPICAL (07:53)
[2023-07-06 07:59] LABS: Glucose - Point of Care 190 mg/dl (70-99)
[2023-07-06] MEDS: FERROUS SULFATE ORAL LIQUID 300 MG TUBE (08:25)
[2023-07-06] MEDS: ROXICODONE ORAL SOLUTION 5 MG TUBE (08:25)
--- NOTE | 2023-07-06 09:02 | PTCARENOTE ---
Addendum entered by Melisa Dent RN 07/06/23 17:17:
During rounds, stated he was giving pt dilaudad 'that i had left over because the doctors stopped her pain meds.'
Original Note:
Received patient in bed, drowsy, restless when woken up, responding to verbal stimuli. Nodding occasionally. Sinus tach, 120s-130s. Weak palpable radial pulses, doppler pedal pulses bilaterally. BP stable, 110s-120s/50s-60s. On 50 L, 80% high flow
nasal cannula, NRB also applied. Unable to determine if NRB is necessary due to the near constant thrashing of patient and inability to get SpO2 with NRB removed. SpO2 94-95 with both applied. Lung sounds coarse throughout. Colostomy intact,
formed/soft stool removed. PEG tube used for meds. Suprapubic lyle putting out cloudy, yellow urine. Wound dressings on lower extremities CDI. Stage 4 dressing on sacrum CDI. Patient repositioned. Hourly rounding and patient safety checks ongoing.
--- NOTE | 2023-07-06 09:12 | W.PN.HOSP.TC ---
Today's Communication/Plan
-
N.p.o.
Continue current care
Assessment / Plan
Assessment / Plan
Gen-AAOx3, NAD
HEENT-NC, AT, anicteric, clear oral mm
Neck-supple
CV-reg, no M, +S1/S2
Lungs-clear B/L
Abd-soft, NT, ND
Ext-no edema
Musculoskeletal-no cyanosis, clubbing
Skin-warm and dry
Neuro-grossly non-focal
Psych-calm, cooperative
Acute TME -due to critical illness, hypoxia, etc.
Acute hypoxic respiratory failure -on high flow nasal cannula, 50 L, 80%. Nonrebreather mask on top. Prognosis remains poor. Etiology of respiratory failure likely due to aspiration, pneumonia. Also has underlying pulmonary fibrosis.
Severe sepsis POA with lactic acidosis
Bilateral pulm infiltrates consistent with acute pneumonia, likely aspiration
Pulmonary fibrosis from prior aspiration PNA episodes
Chronic hypercarbic respiratory failure
- on PO diet, likely some degree of aspiration. Has PEG not in use
- noted pulm evaluation and fibrosed lungs
- continue Vanco/Merrem per ID; follow cultures
- s/p sepsis protocol IVF with improved Lactate
- continue IV steroids started 07/05/23
CAUTI
Chronic suprapubic catheter
- on Merrem, Fosfomycin per ID; follow cultures
Chronic PEG tube, scheduled for discontinuation by [facility] on second week of July 2023 as the device is not in use
Neuropathy
Sciatica nerve pain
Cauda equina syndrome, wheelchair-bound
Fibromyalgia
RSD
Sjogren's syndrome
- continue Gabapentin
- patient reports Dilaudid usage q6h but no filled Dilaudid in >1 year per PDMP review
- will make available here only given severity of pain and patient will need to follow up with outpatient Pain specialist.
Chronic anemia
Hyperlipidemia
Hypertension
GERD
IBS, status post diversion colostomy
Portal hypertension/chronic LFT elevation/history of hepatic nonalcohol cirrhosis with TIPS
Diabetes mellitus type 2
- now patient is eating, resume insulin + SSI
Anxiety/depression
- Prn Ativan
Stage 4 sacral decubitus ulcer
- wound care
Full code
I had a long and yesenia discussion with the patient's at the bedside regarding her poor prognosis in light of recurrent aspiration. She will continue to be admitted to the hospital with recurrent respiratory failure due to aspiration and
chronic dysphagia. I recommend using feeding tube for feeds moving forward and permanent n.p.o. status. I also mentioned to the that tube feeding would not guarantee that she will not aspirate, but risk is certainly lower than eating by
mouth.
Anticipated Discharge: > 48 hours
Subjective/Interval History
-
Date of Service: July 06, 2023
Patient seen and examined. She is incoherent currently. at the bedside. She looks uncomfortable. Not verbalizing.
Objective Data
-
Labs:
Laboratory Results
07/06/23
03:49
WBC 23.8 H
Hgb 8.9 L
Hct 29.2 L
Plt Count 163
Sodium 139
Potassium 4.9
Chloride 105
Carbon Dioxide 32 H
BUN 15
Creatinine 0.6
Glucose 180 H
Calcium 8.4
Total Bilirubin 1.2
AST 49 H
ALT 24
Alkaline Phosphatase 130 H
Vital Signs:
Vital Signs
Temp Pulse Resp BP Pulse Ox
98.5 F 125 23 125/66 96
07/06/23 07:15 07/06/23 09:00 07/06/23 09:00 07/06/23 09:00 07/06/23 09:00
I&O
07/05/23 07/06/23 07/07/23
06:59 06:59 06:59
Intake Total 300 / 300 270 / 270
Output Total 550 / 550 600 / 600 110 / 110
Balance -250 / -250 -330 / -330 -110 / -110
Review of Systems
-
Unable to obtain full review of systems at this time due to: Acuity
--- NOTE | 2023-07-06 09:46 | VNURNOTE ---
Patient is current with [facility] since [facility] w/SN/PT/OT. TANK [employer]EL[employer]ARD has had contact with [facility] [phone] regarding home situation.
According to [facility] 'Home is cluttered and dirty. [facility] is involved - tried to get [place] in and refused. Each nurses visit is at least 1 1/2 to 2 hours due to complexity if sacral wound and leg wounds. I spoke with him
a couple times, not sure he is comprehending how concerned we are about the home situation and her healing process being hindered by the condition of the home'.
Above conveyed to CM.
Liaison to follow patient and discharge plans.
--- NOTE | 2023-07-06 10:20 | PHA.VAN.FU ---
Vancomycin Assessment / Plan
- Assessment
Renal Function: SCR Increasing (SCr 0.4->0.3->0.6)
WBC's are: Trending Down (34.5->23.8)
In the past 24 hrs, patient has been: Afebrile
Concomitant Antimicrobials: meropenem, azithromycin
- Assessment - Therapeutic Drug Monitoring
Extrapolated Cmax (mcg/mL): 26.5
Peak level was drawn: Appropriately
Extrapolated Cmin (mcg/mL): 14.9
Trough Drawn: Appropriately
Levels were drawn: At steady state (after 3rd maintenance dose)
Calculated AUC (mcg*h/mL): 484
Calculated ke: 0.0550
Calculated half life (H): 12.6
Calculated Vd (L): 112
Calculated Vanc CL (ml/min): 103.25
based on vanc 1500mg q12h regimen
- Dosing Plan
Adjust Regimen to: Dose by level due to just in SCr
- Monitoring Plan
Random Level: 07/06 1800, 07/07 0600
- Follow Up
Pharmacy will continue to follow.
Vancomycin Follow UP
- -
Patient Age: 57
Patient Sex: Female
Vancomycin Day #: 3
Indication: Pulmonary/Respiratory
Requesting Provider: Lm
Pertinent Antimicrobial Allergies:
Sulfa = bleeding; Nitrofurantoin = oral ulcers; Vanco = 'I can't move or talk.' Aware of interaction. Will monitor appropriately.
Height / Weight:
Height 5 ft 7 in
Actual Weight 90.7 kg
IBW in k.6
Adjusted BW in k.4
- Vital Signs / Lab Results
Temp Pulse Resp BP Pulse Ox
98.5 F 125 23 125/66 91
07/06/23 07:15 07/06/23 09:00 07/06/23 09:00 07/06/23 09:00 07/06/23 09:52
Lab Results - Hematology
07/03/23 07/04/23 07/05/23
18:00 04:27 08:19
WBC 14.4 H 22.2 H 34.5 H
07/06/23
03:49
WBC 23.8 H
Lab Results - Chemistry
07/03/23 07/04/23 07/05/23
18:00 04:26 08:19
BUN 4 L 3 L 5 L
Creatinine 0.4 L 0.4 L 0.3 L
Estimated Creat Clear 123 120 120
Albumin 2.4 L 2.2 L 2.3 L
07/06/23
03:49
BUN 15
Creatinine 0.6
Estimated Creat Clear 120
Albumin 2.4 L
07/03/23 07/04/23
23:05 04:40
Lactic Acid 2.3 H 1.7
Lab Results - Urine
07/04/23
00:03
Urine Nitrite (Reflex) Positive A
Leukocyte Esterase Rfl 2+ A
Microbiology Results
07/04/23 00:03 Urine Culture - Final
Urine Pseudomonas aeruginosa
07/03/23 23:05 Blood Culture - Preliminary
Blood/Venous No Growth in 48 hours- Final report to follow
07/03/23 23:05 Blood Culture - Preliminary
Blood/Venous No Growth in 48 hours- Final report to follow
07/03/23 23:05 Wound Culture - Preliminary
Abdomen Gram Stain - Preliminary
Therapeutic Drug Monitoring
Vancomycin Peak 22.7 ug/ml (18-26) 07/05/23 22:27
Vancomycin Trough 16.9 ug/ml (5-20) 07/06/23 03:49
[2023-07-06 11:35] LABS: Glucose - Point of Care 176 mg/dl (70-99)
--- NOTE | 2023-07-06 11:37 | PTCARENOTE ---
Pt thrashing in bed. Ativan given. Pt pulled ostomy bag off. Replaced. Wound RN to bedside. Dressings changed-see note. Still requiring High flow O2 and NRB. Upgraded to ICU. at bedside.
--- NOTE | 2023-07-06 11:51 | WOUNDNOTE ---
SACRUM AND BUTTOCKS
--- NOTE | 2023-07-06 11:54 | WOUNDNOTE ---
L LATERAL LOWER LEG
--- NOTE | 2023-07-06 11:54 | WOUNDNOTE ---
L DORSAL FOOT AND TOES
--- NOTE | 2023-07-06 11:55 | WOUNDNOTE ---
L GREAT TOE AND 3RD TOE
--- NOTE | 2023-07-06 12:00 | WOUNDNOTE ---
WON RN note: Patient admitted with B/L pneumonia,hypoglycemia and respiratory insufficiency.
See H&P for complete history. Patient lives at home with and has [place] [facility] [id number].
PMH: obesity,(lost weight since last seen in 2021) cauda equina-chronic lower leg paralysis, colostomy, suprapubic catheter,w/c- bedbound, chronic stage 4 sacral pressure injury, cirrhosis, CHOI, portal HTN, stoma variceal bleed, HTN, NIDDM,
depression, anemia, thrombocytopenia, TIPS, spinal fusion, orthopedic surgeries, R toe amp.
Wound Location and type/assessment: Patient known to service for chronic L & R ischial PI, Sacral stage 4 PI and venous/diabetic leg/toe wounds. Patient agitated and constantly moving, nurse Hernandez and Surya assisted with turning and repositioning
patient. Spoke to Tom at bedside, states wound vac on sacrum had to be removed at home because it wouldn't get a good seal. Sacral ulcer with pink base, septic tank cleaner compared to last seen. L & R ischium with old stage 2 vs 3 PI, moderate
drainage. Clinitron bed in use at home and Roho cushion for wheelchair. Colostomy appliance changed by CYNDY Hernandez this morning. Suprapubic tube intact. Feeding tube with large amt of drainage, light straw in color, skin intact. Legs with healing
venous ulcers R leg >than L, no edema. L dorsal 3rd toe and medial great toe with dry eschar/diabetic wounds. Dorsal feet with old healing blisters/abrasions. R heel red and intact, non blanchable. L heel healing stage 2 PI, now dry flaky crust. R
plantar foot with diabetic ulcer, pink base, no bone exposed. Using offloading heel boots at home.
Appetite: 1800 franklin.
Pressure redistribution devices in place: Centrella air bed. Keep on air mattress if transferred to floor. Called [employer] for TruVue lite offloading heel boots. Nurse Hernandez aware and will apply boots when arrives.
Plan: Dakin's WTD dressing applied to sacrum, silicone foams to b/l Ischium. Dressings changed on legs, heels and feet with assist from nursing. Called [facility] for Colostomy supplies, nursing can do pouch changes. Will confirm orders with hospitalist
and updated nurse. Care plan to be updated and will follow as needed.
--- NOTE | 2023-07-06 12:54 | W.PN.ID1 ---
Date of Service
Date of Service: July 06, 2023
Today's Communication
Prognosis guarded. Continue abx's.
Assessment / Plan
# Severe bilateral pneumonia with progression
# Acute hypoxemic respiratory failure with progression
- hx of Pseudomonas and MRSA in lungs.
- sputum cx pending
-Continue with meropenem IV (d3)
- Continue IV Vancomycin (d3) (she tolerated Vanco last year).
- Continue IV azithromycin (d2) for atypical coverage.
- Prognosis guarded
# Possible CAUTI
-c/o SPC site pain
-h/x of Pseudomonas and VRE colonization in urine.
- Ucx GNR
- Continue meropenem.
# Fever trending down
# leukocytosis improving
- blood cx's neg to date.
-Trend temps/wbc.
#Additional Past Medical History:
DM
CHOI cirrhosis hx tips
Portal hypertension
Functional paraplegic
Neurogenic bladder with chronic suprapubic catheter
Fibromyalgia
GERD
HTN
Dyslipidemia
Depression/anxiety
Sciatica
GI bleed
IBS
Cauda equina syndrome
RSD
Chronic pain
Stage IV sacral decubitus s/p diverting ileostomy
Migraine
DJD
Sjogren syndrome
Ileostomy parastoma repair
Cholecystectomy
Laminectomy
toe amputations
Chief Complaint
-: Clinical Sepsis and Pneumonia
Subjective / Review of Systems
Very lethargic.
Vital Signs / Physical Exam
Vital Signs
Vital Signs
Temp Pulse Resp BP Pulse Ox
98.5 F 141 29 123/96 84
07/06/23 07:15 07/06/23 11:30 07/06/23 11:30 07/06/23 11:00 07/06/23 11:30
Physical Exam
Constitutional: Acutely Ill and Chronically Ill
Pulmonary: Clear (anteriorly)
Gastrointestinal: Soft, Non Tender and Non Distended
Genito-Urinary: Clear Urine
Extremities: Negative Edema
Neurological: Other (lethargic)
Objective Data
Lab Data
Lab Results
07/06/23 03:49
07/06/23 03:49
Estimated Creat Clear 120 ml/min 07/06/23 03:49
Lactic Acid 1.7 mmol/L (0.7-2.0) 07/04/23 04:40
Total Bilirubin 1.2 mg/dl (0.2-1.3) 07/06/23 03:49
AST 49 U/L (14-36) H 07/06/23 03:49
ALT 24 U/L (0-35) 07/06/23 03:49
Alkaline Phosphatase 130 U/L (38-126) H 07/06/23 03:49
Most recent labs reviewed.
Micro Results:
07/06/23 08:12 Respiratory Culture - Pending
Sputum Gram Stain - Preliminary
07/03/23 23:05 Wound Culture - Preliminary
Abdomen Staphylococcus aureus
Yeast
Gram Stain - Preliminary
07/04/23 00:03 Urine Culture - Final
Urine Pseudomonas aeruginosa
07/03/23 23:05 Blood Culture - Preliminary
Blood/Venous No Growth in 48 hours- Final report to follow
07/03/23 23:05 Blood Culture - Preliminary
Blood/Venous No Growth in 48 hours- Final report to follow
07/03/23 CXR: Severe bilateral multifocal pneumonia, progressed.
07/05/23 CXR: Marked widespread bilateral predominantly alveolar opacification with progression in comparison to recent prior study, most likely representing worsening pneumonia or acute pulmonary edema.
[2023-07-06] MEDS: ZITHROMAX INFUSION 250 IV (13:35)
--- NOTE | 2023-07-06 14:16 | CM ---
CM following re:discharge planning.
Discussed in Rounds, reviewed pt's chart, met with pt and pt's Tom at bedside.
Pt is a 57 year old female, admitted with primary dx of Acute hypoxemic resp failure, Bilateral pulm infiltrates/pneumonia. Per Rounds meeting pt requires 55L HFNC with FIO2 78%.
Pt lives with her in a ranch home with ramp to enter. 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 Pt has hospital bed with specialty mattress, wc with Roho cushion, lift recliner chair, bariatric shower chair,
and walker, home O2.
Pt is well known to this CM from previous admission last year when pt had prolonged hospitalization, was on vent, track and peg tube and was transferred to [facility] location. Per , trach was removed at [facility] and pt was
discharged home with [facility]. Per [facility] liaison, home is cluttered and dirty. APS involved outsole caser from [facility] Mae Ardmore [phone], pt's refused caregiver services to help with cleaning the house. CM approached pt's
with this and pt's strongly declined stating that pt supposed to get caregiver services from [facility].
CM called outsole caser Mae, not able to leave a message due to her voice messages full and not accepting new messages.
Pt's approached this CN during day regarding information about Palliative care. Pt's brother Cullen came and with pt's and pt's brother request, CM had a long conversation regarding Palliative care vs comfort care/hospice care and
both pt's and pt's brother expressed their understanding. Pt's stated that pt did tell him she does not want another intubation and another trach and he does not want to see his spouse suffering. Pt's brother instead asked pt's
not to make any decisions yet and he stated his daughter is a nurse practitioner and she has some suggestion. CM asked pt's brother to bring it to MD and both pt's and pt's brother had a conversation with web designer regarding plan
of care.
PCP: Albert Glover
Pharmacy: [facility] in [place]
D/C plan: TBD and will depend on pt's progress.
CM will follow with discharge plan updates as hospitalization progresses
[2023-07-06] MEDS: EFFEXOR 75 MG TUBE ×2 (15:52→22:20)
--- NOTE | 2023-07-06 15:59 | PTCARENOTE ---
Assessment unchanged. Pt thrashing in bed, SpO2 to 70s with questionable waveform. nods to 'do you know where you are?' but won't verbalize. Dilaudid administered with pt quickly calming and SpO2 returns to 94-97%.
[2023-07-06] MEDS: LOVENOX 40 MG SC (17:38)
[2023-07-06] MEDS: NOVOLOG FLEXPEN-MODERATE RESISTANCE 3 UNITS SC (17:38)
[2023-07-06] MEDS: LIPITOR 10 MG TUBE (17:39)
[2023-07-06 17:58] LABS: Glucose - Point of Care 210 mg/dl (70-99)
[2023-07-06] MEDS: PULMICORT 0.5 MG INH (19:21)
--- NOTE | 2023-07-06 19:50 | PTCARENOTE ---
Resumed care of pt this evening. Pt presents restless and thrashing in bed. PRN dose of ativan and dilaudid administered per protocol. VSS, will continue to monitor.
--- NOTE | 2023-07-06 20:51 | W.PN.UPDATE ---
Update Note
Progress Note Update
1830 Spoke to and patient is now a DNI.
[2023-07-06] MEDS: VANCOCIN HCL 500 MG 100 IV (21:57)
[2023-07-06] MEDS: MIRAPEX, GENERIC 1.5 MG TUBE (22:21)
[2023-07-06] MEDS: NOVOLOG FLEXPEN-HIGH RESISTANCE 4 UNITS SC (23:13)
[2023-07-06 23:22] LABS: Glucose - Point of Care 237 mg/dl (70-99)
[2023-07-07] VITALS (24 sets, daily range): BP systolic 96–128; BP diastolic 53–97; BMI 31.2
[2023-07-07] MEDS: ATIVAN 1 MG IV ×2 (02:33→12:48)
[2023-07-07] MEDS: NSS (PRESERVATIVE FREE) 0.5 ML IV (02:33)
[2023-07-07] MEDS: DILAUDID 1 MG IV ×3 (04:05→18:00)
[2023-07-07 04:13] LABS: % Basophils 0.2 % (0-2); % Eosinophils 0.1 % (0-6); % Lymphocytes 6.3 % (20.5-51.1); % Monocytes 4.4 % (1.7-9.3); Absolute Immature Granulocytes 0.2 10^3/uL (0-0.05); Absolute Lymphocytes 1.2 10^3/uL (1.2-3.4); Absolute Monocytes 0.8 10^3/uL (0.1-0.6); Absolute Neutrophils 16.1 10^3/uL (1.4-6.5); Hematocrit 28.7 % (37.0-47.0); Hemoglobin 8.6 g/dL (12.0-16.0); Mean Corpuscular Hgb 25.5 pg (27.0-31.0); Mean Corpuscular Volume 85.2 fL (81.0-99.0); Mean Platelet Volume 12.5 fL (7.4-10.4); Nucleated Red Blood Cells % 0 %; Platelet Count 157 10^3/uL (130-400); Red Blood Cell Count 3.37 10^6/uL (4.20-5.40); Red Cell Dist. Width 19.9 % (11.5-14.5); White Blood Cell Count 18.3 10^3/uL (4.8-10.8)
[2023-07-07 04:31] LABS: ALT (SGPT) 23 U/L (0-35); AST (SGOT) 48 U/L (14-36); Albumin 2.2 g/dl (3.5-5.0); Alkaline Phosphatase 122 U/L (38-126); Blood Urea Nitrogen 26 mg/dl (7-17); Carbon Dioxide 39 mmol/L (22-30); Chloride 101 mmol/L (98-107); Estimated Creatinine Clearance 118 ml/min; Glucose 270 mg/dl (70-99); Sodium 142 mmol/L (135-145); Total Bilirubin 0.8 mg/dl (0.2-1.3); Total Protein 6.2 g/dl (6.3-8.2); eGFR > 60.00
[2023-07-07 04:36] LABS: Potassium 5.1 mmol/L (3.5-5.1)
[2023-07-07] MEDS: MERREM 1000 MG IV ×3 (05:13→21:53)
[2023-07-07] MEDS: STERILE WATER FOR INJECTION 20 ML IV ×3 (05:13→21:53)
[2023-07-07] MEDS: SOLU-MEDROL PF 40 MG IV ×2 (05:13→20:23)
[2023-07-07] MEDS: NOVOLOG FLEXPEN-HIGH RESISTANCE 4 UNITS SC (05:27)
[2023-07-07 05:38] LABS: Glucose - Point of Care 230 mg/dl (70-99)
--- NOTE | 2023-07-07 06:05 | PTCARENOTE ---
Sacral dressing changed per protocol. Small amount of serosang drainage noted. VSS.
[2023-07-07] MEDS: DESENEX/MITRAZOL/ZEASORB 1 APPLIC TOPICAL ×2 (07:32→20:20)
[2023-07-07] MEDS: DAKIN'S SOLUTION 0.125% 1/4 STRENGTH 473 ML TOPICAL (07:32)
[2023-07-07] MEDS: PROTONIX IV 40 MG IV (07:33)
[2023-07-07] MEDS: LIORESAL 10 MG TUBE ×2 (07:34→20:23)
[2023-07-07] MEDS: NEURONTIN 600 MG TUBE ×3 (07:34→21:53)
[2023-07-07] MEDS: XIFAXAN 550 MG TUBE ×2 (07:34→20:24)
[2023-07-07] MEDS: MAGNESIUM OXIDE 500 MG TUBE ×2 (07:34→20:23)
[2023-07-07] MEDS: DUPHALAC/CHRONULAC 10 GRAMS TUBE ×2 (07:34→20:22)
[2023-07-07] MEDS: EFFEXOR 75 MG TUBE ×3 (07:34→21:53)
[2023-07-07] MEDS: VITAMIN C 500 MG TUBE ×2 (07:34→20:24)
[2023-07-07] MEDS: DITROPAN 7.5 MG TUBE ×2 (07:35→20:22)
[2023-07-07] MEDS: NSS (PRESERVATIVE FREE) 10 ML IV (07:35)
[2023-07-07] MEDS: LIDOCAINE 4% PATCH TOPICAL (07:35)
--- NOTE | 2023-07-07 07:39 | W.PN.INTV ---
Today's Communication / Plan
Recommendations
As per patient precautions
Supplemental oxygen as needed
Check ABG
Consider noninvasive ventilation
Continue antibiotics
Aspiration precautions
DNI-discussed potential full DNR/palliative care/hospice with at the bedside-will 'think about it'
Assessment
-
Mrs Dillon Ortez is a 57/W adm 07-03 with 1 d h/o dyspnea, productive cough, fever 101.4F and chills at home. Chronically ill patient with multitude of medical conditions, deconditioned, bed-wheelchair bound. Reported increasing ROYCE edema,
yellow discharge around G tube for 3-5 d. Found POx 75% on RA upon arrival and G 45 (took aspart insulin but did not get a chance to eat earlier at home), CXR with bilateral infiltrates, started on empiric meropenem
Acute hypoxemic resp failure
Bilateral pulm infiltrates/pneumonia
Aspiration risk
Leukocytosis
Anemia
Resolved lactic acidosis
Abnormal UA, through suprapubic catheter which is changed once a month
Sacral decubitus ulcer, chronic
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
Asp pneumonia, CAUTI, adm 06-08 to , received meropenem and linezolid
Prolonged hospital stay 12/2022-03/2023.
Ventilator dependent respiratory failure/tracheostomy tube/eventually decannulated
Tracheal aspirate 02-16: +Ps aerug
MRSA PNA-bilateral extensive
MDRO UTI
Acute refractory hypoxemic respiratory failure on MV
Intubated 01/14/23; Extubated 01/19/23
Reintubated 01/27/23; Extubated 02/04/2023
Reintubated 02/06/2023
s/p Tracheostomy- 02/09/23
S/p exchange of tracheostomy due to airway leak on 02-25: 6 Shiley
s/p PEG 02-24
Severe bilateral lung disease, persistent likely has progressed to fibrosis
Covid x 2 neg 01/12 & 01/25/23, viral panel negative 01/14, sputum cx neg 01/14
s/p RHC 08- with PCWP 20, hyperdynamic CO/CI, moderate-sev PH
s/p bronchoscopy 01/27/23 no endobronchial abnls, bronch wash sent x 2
Chronic hypercarbic respiratory failure, ABG(s) 7.43/53, 7.41/60
Chronic PEG tube, scheduled for discontinuation by [facility] EUCEDA on second week of July 2023 as the device is not in use
Suprapubic catheter in place
Neuropathy
Sciatica nerve pain
Cauda equina syndrome, wheelchair-bound
Hyperlipidemia
Hypertension
GERD
IBS, status post diversion colostomy
Portal hypertension/chronic LFT elevation/history of hepatic nonalcohol cirrhosis with TIPS
Fibromyalgia
RSD
Diabetes mellitus type 2
Nonhealing ulcers-decubitus
Lichen planus
Anxiety/depression
Chronic anemia
Sjogren's syndrome
Morbid obesity
Nonsmoker
Plan:
Remains critically ill on high FiO2, marginal saturations, tachycardia, agitated, heading towards needing noninvasive ventilation
Patient has had recurrent pneumonias, is known that her pulmonary parenchyma had evolved into fibrosis on CT Dec 2022
Supplemental oxygen as needed
High flow oxygen/BiPAP if needed/NIV if needed-V60
Patient has expressed to some healthcare worker she does not want reintubation, however, insists on intubation if needed
Patient now limited DNR-DO NOT INTUBATE
Chest x-ray 07/25-widespread bilateral alveolar opacifications with progression compared to 07/03/2023 representing worsening pneumonia and/or acute pulmonary edema
Nebulizers
Aspiration precautions
Mucolytic's
Mucus clearing devices if able
Check ABG with increased somnolence
Noninvasive ventilation if needed
Cultures reviewed-blood cultures negative
Urine culture 06/08/2023-Pseudomonas and Enterococcus
Urine culture 07/04/20235410-[id number] bacilli
Sputum culture 07/06/2023-pending
Broad-spectrum antibiotics
Infectious disease following-correspondence reviewed
Urology consultation for suprapubic catheter change
May need gastroenterology to change gastrostomy tube
Agitation a real problem as was during previous admission
Patient was on ketamine-since discontinued
Dr. Burns also updated patient's brother 07/06/2023
Ativan as needed
Oxycodone as needed-monitor for oversedation
Baclofen continues-chronic medication
Monitor tachycardia-suspect related to infection, and agitation
Sacral wound care
DVT prophylaxis-on Lovenox
GI prophylaxis-on pantoprazole
Early nutrition
Early mobilization/physical therapy
Dr. Burns updated 07/06/2023 at length-updated on current clinical status, aspiration pneumonia, severe agitation, and potential need for intubation/trach/long-term ventilator- reports patient would not want long-term mechanical
ventilation/mcfp-suggested honoring her wishes of not intubation-he will 'think about it'-further discussions with clinical social work therapist-
Dr. Burns also updated brother separately on 07/06/2023 at length-updated current clinical situation, comfort a priority, think about CODE STATUS, DNI, etc.
Dr. Burns updated 07/07/2023 at length-patient now DNI, they are thinking about full DNR, futility of coding the patient was reviewed with him. He will make a decision later today.
Critical care statement: A total of 42 minutes of critical care time was provided for this patient today. This includes management of unstable vital signs, evaluation of the patient at bedside, reviewing the patient's pertinent medical records
including radiographs, microbiology, laboratory evaluations, and discussion with primary team, consultants, pharmacy, nutrition, physical therapy, case management, charge nurse, critical care nursing, and respiratory therapy.
Diagnostic tests:
CXR 07-03-23, PA/lat, c/w 06-08-23, current film underpenetrated but worsening of bilateral pulm infiltrates
Subjective Dataa
Subjective Data
Date of Service:
Date of Service: July 07, 2023
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
Subjective:
More somnolent, tachycardic, occasionally agitated,
Review of Systems
General: Other (Per HPI)
Objective Data
Data Reviewed
Vital Signs / I&O / Oxygen:
Vital Signs
Temp Pulse Resp BP Pulse Ox
98.9 F 120 15 128/65 96
07/07/23 05:32 07/07/23 06:00 07/07/23 06:00 07/07/23 06:00 07/07/23 06:00
Intake and Output
07/06/23 07/07/23 07/08/23
06:59 06:59 06:59
Intake Total 270 / 270 315 / 315
Output Total 600 / 600 1460 / 1460
Balance -330 / -330 -1145 / -1145
SaO2 96
Nasal Cannula flow liters per 50
minute
Physical Exam
General: Respiratory Distress (Mild)
HEENT: Normocephalic, Anicteric and Moist Mucous Membranes
Cardiovascular: Regular Rhythm (Tachycardia)
Respiratory: Wheeze (Forced expiratory), Crackles ( basilar), Rhonchi and Stridor (n)
GI: Soft, Non Distended and Non Tender
Neurology: Alert, No Motor Deficits and Other (agitated)
Skin: Dry, Good Color, Cyanosis (n) and Jaundice (n)
Labs/Micro/Reports
Lab Data
07/07/23 03:55
07/07/23 03:55
Microbiology
07/03/23 23:05 Abdomen Wound Culture - Preliminary
Staphylococcus aureus
Yeast
07/03/23 23:05 Abdomen Gram Stain - Preliminary
07/03/23 23:05 Blood/Venous Blood Culture - Preliminary
No Growth in 72 hours- Final report to follow
07/03/23 23:05 Blood/Venous Blood Culture - Preliminary
No Growth in 72 hours- Final report to follow
07/06/23 08:12 Sputum Gram Stain - Preliminary
07/04/23 00:03 Urine Urine Culture - Final
Pseudomonas aeruginosa
[2023-07-07] MEDS: PULMICORT 0.5 MG INH ×2 (07:53→19:28)
[2023-07-07] MEDS: DUONEB 3 ML INH ×4 (07:53→19:29)
--- NOTE | 2023-07-07 08:22 | PHA.VAN.FU ---
Vancomycin Assessment / Plan
- Assessment
Renal Function: Stable
WBC's are: Trending Down
In the past 24 hrs, patient has been: Afebrile
Concomitant Antimicrobials: meropenem, azithromycin
- Assessment - Therapeutic Drug Monitoring
Random Level: 16 - drawn ~15H after previous level of 16.9
Calculated ke: 0.0035
Calculated half life (H): 195
Random level drawn last night ~15H after trough
Patient with minimal clearance
- Dosing Plan
Dosing by Level: Hold off on dosing today
- Monitoring Plan
Random Level: 07/08 0600
- Follow Up
Pharmacy will continue to follow.
Vancomycin Follow UP
- -
Patient Age: 57
Patient Sex: Female
Vancomycin Day #: 4
Indication: Pulmonary/Respiratory
Requesting Provider: Lm
Pertinent Antimicrobial Allergies:
Sulfa = bleeding
Nitrofurantoin = oral ulcers
Vanco = 'I can't move or talk.'
Height / Weight:
Height 5 ft 7 in
Actual Weight 90.2 kg
IBW in k.6
Adjusted BW in k.4
Pertinent Past Medical History: BMI ~31, DM
- Vital Signs / Lab Results
Temp Pulse Resp BP Pulse Ox
98.9 F 119 30 128/65 97
07/07/23 05:32 07/07/23 07:57 07/07/23 07:57 07/07/23 06:00 07/07/23 07:58
Lab Results - Hematology
07/05/23 07/06/23 07/07/23
08:19 03:49 03:55
WBC 34.5 H 23.8 H 18.3 H
Lab Results - Chemistry
07/05/23 07/06/23 07/07/23
08:19 03:49 03:55
BUN 5 L 15 26 H
Creatinine 0.3 L 0.6 0.6
Estimated Creat Clear 120 120 118
Albumin 2.3 L 2.4 L 2.2 L
Microbiology Results
07/03/23 23:05 Wound Culture - Final
Abdomen Staph aureus MRSA
Yeast
Gram Stain - Final
07/03/23 23:05 Blood Culture - Preliminary
Blood/Venous No Growth in 72 hours- Final report to follow
07/03/23 23:05 Blood Culture - Preliminary
Blood/Venous No Growth in 72 hours- Final report to follow
07/06/23 08:12 Gram Stain - Preliminary
Sputum
07/04/23 00:03 Urine Culture - Final
Urine Pseudomonas aeruginosa
Therapeutic Drug Monitoring
Vancomycin Peak 22.7 ug/ml (18-26) 07/05/23 22:27
Vancomycin Trough 16.9 ug/ml (5-20) 07/06/23 03:49
Random Vancomycin 16.0 ug/ml 07/06/23 19:15
--- NOTE | 2023-07-07 08:52 | W.PN.HOSP.TC ---
Addendum entered and electronically signed by Gilberto Andrade DO 07/07/23 12:48:
Left & Right ischium with old stage 2 vs 3 PI, moderate drainage
Original Note:
Today's Communication/Plan
-
Continue current care
Assessment / Plan
Assessment / Plan
Gen-unresponsive
HEENT-NC, AT, anicteric, clear oral mm
Neck-supple
CV-reg, no M, +S1/S2
Lungs-clear B/L
Abd-soft, NT, ND
Ext-no edema
Musculoskeletal-no cyanosis, clubbing
Skin-warm and dry
Neuro-grossly non-focal
Psych-calm, cooperative
Acute TME -due to critical illness, hypoxia, etc. given as needed Ativan during the night for agitation. Also received IV Dilaudid.
Acute hypoxic respiratory failure -on high flow nasal cannula, 50 L, 80%. Nonrebreather mask on top. Prognosis remains poor. Etiology of respiratory failure likely due to aspiration, pneumonia. Also has underlying pulmonary fibrosis.
Severe sepsis POA with lactic acidosis
Bilateral pulm infiltrates consistent with acute pneumonia, likely aspiration
Pulmonary fibrosis from prior aspiration PNA episodes
Chronic hypercarbic respiratory failure
- on PO diet, likely some degree of aspiration. Has PEG not in use
- noted pulm evaluation and fibrosed lungs
- continue Vanco/Merrem per ID; follow cultures
- s/p sepsis protocol IVF with improved Lactate
- continue IV steroids started 07/05/23
CAUTI
Chronic suprapubic catheter
- on Merrem, Fosfomycin per ID; follow cultures
Chronic PEG tube, scheduled for discontinuation by [facility] on second week of July 2023 as the device is not in use. Tube feeds resumed.
Neuropathy
Sciatica nerve pain
Cauda equina syndrome, wheelchair-bound
Fibromyalgia
RSD
Sjogren's syndrome
- continue Gabapentin
- patient reports Dilaudid usage q6h but no filled Dilaudid in >1 year per PDMP review
- will make available here only given severity of pain and patient will need to follow up with outpatient Pain specialist.
Chronic anemia
Hyperlipidemia
Hypertension
GERD
IBS, status post diversion colostomy
Portal hypertension/chronic LFT elevation/history of hepatic nonalcohol cirrhosis with TIPS
Diabetes mellitus type 2
- now patient is eating, resume insulin + SSI
Anxiety/depression
- Prn Ativan
Stage 4 sacral decubitus ulcer
- wound care
Limited DNR
Very poor overall prognosis. She remains hospice appropriate.
Anticipated Discharge: > 48 hours
Subjective/Interval History
-
Date of Service: July 07, 2023
Patient seen and examined. Unresponsive today.
Objective Data
-
Labs:
Laboratory Results
07/07/23
03:55
WBC 18.3 H
Hgb 8.6 L
Hct 28.7 L
Plt Count 157
Sodium 142
Potassium 5.1
Chloride 101
Carbon Dioxide 39 H
BUN 26 H
Creatinine 0.6
Glucose 270 H
Calcium 9.0
Total Bilirubin 0.8
AST 48 H
ALT 23
Alkaline Phosphatase 122
Vital Signs:
Vital Signs
Temp Pulse Resp BP Pulse Ox
98.9 F 119 30 128/65 97
07/07/23 05:32 07/07/23 07:57 07/07/23 07:57 07/07/23 06:00 07/07/23 07:58
I&O
07/06/23 07/07/23 07/08/23
06:59 06:59 06:59
Intake Total 270 / 270 315 / 315
Output Total 600 / 600 1460 / 1460
Balance -330 / -330 -1145 / -1145
Review of Systems
-
Unable to obtain full review of systems at this time due to: Acuity
--- NOTE | 2023-07-07 09:00 | PTCARENOTE ---
Received patient in bed, drowsy, restless when woken up, responding to touch only. Sinus tach, 110s-130s. Weak palpable radial pulses, doppler pedal pulses bilaterally. BP stable, 110s-120s/50s-60s. On 50 L, 100% high flow nasal cannula, NRB also
applied. Unable to determine if NRB is necessary due to the near constant thrashing of patient and inability to get SpO2 with NRB removed. SpO2 94-98% with both applied. Lung sounds coarse throughout. Colostomy intact, scant stool present. PEG tube
with TF at goal. Suprapubic lyle putting out cloudy, yellow urine. Wound dressings on lower extremities CDI. Stage 4 dressing on sacrum CDI. Patient repositioned. Hourly rounding and patient safety checks ongoing.
--- NOTE | 2023-07-07 09:42 | PTCARENOTE ---
Urology to bedside and suprapubic cath changed to 18f with 30cc balloon.
--- NOTE | 2023-07-07 09:53 | W.PN.ID1 ---
Date of Service
Date of Service: July 07, 2023
Today's Communication
Continue Vanco/meropenem/Azithromycin
Assessment / Plan
# Severe bilateral pneumonia with progression
# Acute hypoxemic respiratory failure with progression
- hx of Pseudomonas and MRSA in lungs.
- sputum cx S. aureus
-Continue with meropenem IV (d4)
- Continue IV Vancomycin (d4)
- Continue IV azithromycin (d3) for atypical coverage.
- Prognosis remains guarded. Now DNI.
# Possible CAUTI
-c/o SPC site pain
-h/x of Pseudomonas and VRE colonization in urine.
- Ucx Pseudomonas
- Continue meropenem.
# Fever resolved
# leukocytosis improving
- blood cx's neg to date.
-Trend wbc.
#Additional Past Medical History:
DM
CHOI cirrhosis hx tips
Portal hypertension
Functional paraplegic
Neurogenic bladder with chronic suprapubic catheter
Fibromyalgia
GERD
HTN
Dyslipidemia
Depression/anxiety
Sciatica
GI bleed
IBS
Cauda equina syndrome
RSD
Chronic pain
Stage IV sacral decubitus s/p diverting ileostomy
Migraine
DJD
Sjogren syndrome
Ileostomy parastoma repair
Cholecystectomy
Laminectomy
toe amputations
Chief Complaint
-: Clinical Sepsis and Pneumonia
Subjective / Review of Systems
at bedside.
Patient agitated.
Vital Signs / Physical Exam
Vital Signs
Vital Signs
Temp Pulse Resp BP Pulse Ox
99.3 F 121 15 125/68 97
07/07/23 08:00 07/07/23 09:00 07/07/23 09:00 07/07/23 09:00 07/07/23 09:00
Physical Exam
Constitutional: Acutely Ill and Chronically Ill
Eyes: Sclera Anicteric
Cardiovascular: S1/S2 and Other (tachycardic)
Gastrointestinal: Soft, Non Tender and Non Distended
Genito-Urinary: Clear Urine (SPC)
Extremities: Edema
Psychological: Agitated
Objective Data
Lab Data
Lab Results
07/07/23 03:55
07/07/23 03:55
Estimated Creat Clear 118 ml/min 07/07/23 03:55
Lactic Acid 1.7 mmol/L (0.7-2.0) 07/04/23 04:40
Total Bilirubin 0.8 mg/dl (0.2-1.3) 07/07/23 03:55
AST 48 U/L (14-36) H 07/07/23 03:55
ALT 23 U/L (0-35) 07/07/23 03:55
Alkaline Phosphatase 122 U/L (38-126) 07/07/23 03:55
Most recent labs reviewed.
Micro Results:
07/06/23 08:12 Respiratory Culture - Preliminary
Sputum Staphylococcus aureus
Gram Stain - Preliminary
07/03/23 23:05 Wound Culture - Final
Abdomen Staph aureus MRSA
Yeast
Gram Stain - Final
07/03/23 23:05 Blood Culture - Preliminary
Blood/Venous No Growth in 72 hours- Final report to follow
07/03/23 23:05 Blood Culture - Preliminary
Blood/Venous No Growth in 72 hours- Final report to follow
07/04/23 00:03 Urine Culture - Final
Urine Pseudomonas aeruginosa
07/03/23 CXR: Severe bilateral multifocal pneumonia, progressed.
07/05/23 CXR: Marked widespread bilateral predominantly alveolar opacification with progression in comparison to recent prior study, most likely representing worsening pneumonia or acute pulmonary edema.
[2023-07-07 09:56] LABS: B.E. 10.6 mmol/L; HCO3 38.6 mmol/L (21-28); O2 Saturation % 91.4 % (94-98); PO2 61 mmHg (83-108); pH 7.32 (7.35-7.45)
[2023-07-07 10:01] LABS: PCO2 75 mmHg (32-35)
[2023-07-07] MEDS: LOPRESSOR 25 MG PO ×2 (11:33→20:23)
[2023-07-07] MEDS: NOVOLOG FLEXPEN-HIGH RESISTANCE 7 UNITS SC ×2 (11:33→17:29)
[2023-07-07 11:43] LABS: Glucose - Point of Care 291 mg/dl (70-99)
--- NOTE | 2023-07-07 11:56 | PTCARENOTE ---
TF stopped for bed percussion and administration of meds. Residual 250+, returned. TF noted leaking around PEG site. No stool output since bag change yesterday. TF placed on hold.
--- NOTE | 2023-07-07 12:42 | PN.CDI ---
CDI
- -
CDI:
Physician Documentation Request
Admit Date: 07/03/23 23:28
Dear Doctor Raymond,
Patient admitted with sepsis.
/ Wound Note: 'L & R ischium with old stage 2 vs 3 PI, moderate drainage.'
Physician documentation of the type and location of wounds is required for compliant documentation. Based on the above clinical findings and your assessment, please provide the following in your progress note:
1. Location of the ulcer/wound, including laterality.
2. Type (etiology) of ulcer/wound:
- Pressure (decubitus) ulcer
- Other
- Unable to determine
3. If a pressure ulcer, please also include the stage* of the ulcer:
- Stage 1 - Skin intact, non-blanchable redness
- Stage 2 - Partial thickness loss of dermis, includes intact or open blister
- Stage 3 - Full thickness tissue not including bone, tendon or muscle
- Stage 4 - Full thickness tissue loss, including exposed bone, tendon or muscle
- Unstageable - Full thickness loss in which the base of the ulcer is covered by slough (yellow, seo, fraga, green or brown) and/or eschar (seo, brown or black) in the wound bed.
- Unable to determine
Use of terms such as suspected, likely, concern for, or probable (associated with a specific diagnosis that is being evaluated, monitored, or treated as if it exists) are acceptable and can be coded in the inpatient setting, when documented at the
time of discharge.
Thank you,
Betty Wayne RN, BSN
CDI Specialist
Available via [employer] text
Please use your independent medical judgment in providing your response.
*Source: National Pressure Ulcer Advisory Panel (NPUAP)
[2023-07-07] MEDS: ZITHROMAX INFUSION 250 IV (14:03)
--- NOTE | 2023-07-07 14:40 | W.PN.UPDATE ---
Update Note
Progress Note Update
Another evaluation at the bedside- present-he would like no more Kerlix-he does not want intubation, CPR, defibrillation and wants her comfortable. He is not ready to withdraw. She would like ongoing supportive care-patient and 's
wishes will be respected and patient will be made a full DNR
--- NOTE | 2023-07-07 15:23 | PTCARENOTE ---
Pt appears to be abd breathing more. HR decreasing to 95-105. Dr. Burns to bedside and , Tom made pt DNR. Bracelet applied.
--- NOTE | 2023-07-07 15:54 | W.PN.URO.CBU ---
Today's Communication / Plan
-
call if problems
Assessment / Plan
-
changed sp tube at bedside
Diagnosis
-
Date of Service: July 07, 2023
-
Patient Diagnosis:neurogenic bladder with retention
Post Op Day:
Subjective
-
cannot void
Objective
-
Vital Signs
Temp Pulse Resp BP Pulse Ox
99.6 F 101 22 101/64 97
07/07/23 11:52 07/07/23 15:25 07/07/23 15:25 07/07/23 15:00 07/07/23 15:26
Intake and Output
07/06/23 07/07/23 07/08/23
06:59 06:59 06:59
Intake Total 270 / 270 315 / 315
Output Total 600 / 600 1460 / 1460 280 / 280
Balance -330 / -330 -1145 / -1145 -280 / -280
Intake:
IV piggybacks 270 / 270 270 / 270
Tube feeding 20 / 20
Feeding tube flush amount
Output:
Urine, Welch 600 / 600 1175 / 1175
Suprapubic output 285 / 285 280 / 280
Laboratory Results
07/07/23 03:55
07/07/23 03:55
Review of Systems
-
: Difficulty Voiding
Physical Exam
-
General - well developed, well nourished, no acute distress
Chest - clear bilaterally
Abdomen - soft, non-tender, positive bowel sounds, no CVAT, no incisional pain or distention
Genitalia - normal
Rectal - normal
Skin - warm & dry with no rash
Neuro - AOx3, no motor deficits
Extremities - no clubbing, no cyanosis, no edema
Incision - clean, dry
Dressing - clean, dry, intact
Counseling
-
changed sp tube
Care Review
Data Reviewed
Discussed with: Internal Medicine, Nursing and Family
[2023-07-07] MEDS: LOVENOX 40 MG SC (17:26)
[2023-07-07] MEDS: LIPITOR 10 MG TUBE (17:26)
[2023-07-07 17:39] LABS: Glucose - Point of Care 260 mg/dl (70-99)
--- NOTE | 2023-07-07 21:40 | PTCARENOTE ---
received patient from previous shift. not responding to commands. agonal respirations. restraints removed, pt making no attempts to move limbs. remains on high flow 50L/100%. ST on the monitor. meds given via peg tube, tube feed infusing. Suprapubic
cath draining yellow urine. repositioned for comfort.
[2023-07-07] MEDS: MIRAPEX, GENERIC 1.5 MG TUBE (21:53)
[2023-07-07 23:24] LABS: Glucose - Point of Care 223 mg/dl (70-99)
[2023-07-07] MEDS: NOVOLOG FLEXPEN-HIGH RESISTANCE 3 UNITS SC (23:36)
[2023-07-08] VITALS (18 sets, daily range): BP systolic 87–143; BP diastolic 54–73; BMI 31.0
[2023-07-08] MEDS: DILAUDID 1 MG IV ×2 (02:59→10:39)
[2023-07-08] MEDS: ATIVAN 1 MG IV ×2 (03:25→23:52)
--- NOTE | 2023-07-08 04:00 | PTCARENOTE ---
pt awake, kicking the bottom of the bed. thrashing around in bed, grimacing. ripped off colostomy bag, bag replaced. PRN ativan and dilaudid given.
[2023-07-08 04:49] LABS: % Basophils 0.2 % (0-2); % Lymphocytes 5.5 % (20.5-51.1); % Monocytes 5.3 % (1.7-9.3); Absolute Immature Granulocytes 0.2 10^3/uL (0-0.05); Absolute Lymphocytes 1.1 10^3/uL (1.2-3.4); Hematocrit 30.4 % (37.0-47.0); Hemoglobin 8.8 g/dL (12.0-16.0); Mean Corp Hgb Conc. 28.9 g/dL (33.0-37.0); Mean Corpuscular Hgb 25.6 pg (27.0-31.0); Mean Corpuscular Volume 88.4 fL (81.0-99.0); Mean Platelet Volume 12.3 fL (7.4-10.4); Nucleated Red Blood Cells % 0 %; Platelet Count 118 10^3/uL (130-400); Red Blood Cell Count 3.44 10^6/uL (4.20-5.40); Red Cell Dist. Width 19.7 % (11.5-14.5); White Blood Cell Count 19.3 10^3/uL (4.8-10.8)
--- NOTE | 2023-07-08 05:13 | PTCARENOTE ---
tube feed leaking out around peg tube site. tube feed turned off per HIGH RISK OB. complete bed bath given. dressing reinforced.
[2023-07-08] MEDS: STERILE WATER FOR INJECTION 20 ML IV ×2 (05:22→15:24)
[2023-07-08] MEDS: MERREM 1000 MG IV ×2 (05:22→15:25)
[2023-07-08 05:33] LABS: ALT (SGPT) 28 U/L (0-35); AST (SGOT) 70 U/L (14-36); Albumin 2.5 g/dl (3.5-5.0); Alkaline Phosphatase 151 U/L (38-126); Blood Urea Nitrogen 23 mg/dl (7-17); Calcium 8.9 mg/dl (8.4-10.2); Chloride 105 mmol/L (98-107); Estimated Creatinine Clearance 118 ml/min; Glucose 230 mg/dl (70-99); Potassium 5.2 mmol/L (3.5-5.1); Sodium 145 mmol/L (135-145); Total Bilirubin 0.9 mg/dl (0.2-1.3); Total Protein 6.7 g/dl (6.3-8.2); eGFR > 60.00
[2023-07-08 05:35] LABS: Vancomycin Random 7.1 ug/ml
[2023-07-08 05:44] LABS: Carbon Dioxide 36 mmol/L (22-30)
[2023-07-08] MEDS: NOVOLOG FLEXPEN-HIGH RESISTANCE 2 UNITS SC (05:52)
[2023-07-08 06:02] LABS: Glucose - Point of Care 197 mg/dl (70-99)
--- NOTE | 2023-07-08 07:28 | W.PN.HOSP.TC ---
Today's Communication/Plan
-
Continue current efforts
Assessment / Plan
Assessment / Plan
Gen-unresponsive
HEENT-NC, AT, anicteric, clear oral mm
Neck-supple
CV-reg, no M, +S1/S2
Lungs-clear B/L
Abd-soft, NT, ND
Ext-no edema
Musculoskeletal-no cyanosis, clubbing
Skin-warm and dry
Neuro-grossly non-focal
Psych-calm, cooperative
Acute TME -due to critical illness, hypoxia, etc., she remains unresponsive.
Acute hypoxic respiratory failure -on high flow nasal cannula, 50 L, 80%. Nonrebreather mask on top. Prognosis remains poor. Etiology of respiratory failure likely due to aspiration, pneumonia. Also has underlying pulmonary fibrosis.
Severe sepsis POA with lactic acidosis
Bilateral pulm infiltrates consistent with acute pneumonia, likely aspiration
Pulmonary fibrosis from prior aspiration PNA episodes
Chronic hypercarbic respiratory failure
- on PO diet, likely some degree of aspiration. Has PEG not in use
- noted pulm evaluation and fibrosed lungs
- continue Vanco/Merrem per ID; follow cultures
- s/p sepsis protocol IVF with improved Lactate
- continue IV steroids started 07/05/23
CAUTI
Chronic suprapubic catheter
- on Merrem, Fosfomycin per ID; follow cultures
Chronic PEG tube, scheduled for discontinuation by GI on second week of July 2023 as the device is not in use. Tube feeds resumed.
Neuropathy
Sciatica nerve pain
Cauda equina syndrome, wheelchair-bound
Fibromyalgia
RSD
Sjogren's syndrome
- continue Gabapentin
- patient reports Dilaudid usage q6h but no filled Dilaudid in >1 year per PDMP review
- will make available here only given severity of pain and patient will need to follow up with outpatient Pain specialist.
Chronic anemia
Hyperlipidemia
Essential hypertension
GERD
IBS, status post diversion colostomy
Portal hypertension/chronic LFT elevation/history of hepatic nonalcohol cirrhosis with TIPS
Diabetes mellitus type 2
- now patient is eating, resume insulin + SSI
Anxiety/depression
- Prn Ativan
Stage 4 sacral decubitus ulcer
- wound care
DNR
Very poor overall prognosis. She remains hospice appropriate. Very unlikely she will survive this hospitalization unfortunately.
Anticipated Discharge: > 48 hours
Subjective/Interval History
-
Date of Service: July 08, 2023
Patient seen and examined. Remains unresponsive. Agonal breathing.
Objective Data
-
Labs:
Laboratory Results
07/08/23
04:25
WBC 19.3 H
Hgb 8.8 L
Hct 30.4 L
Plt Count 118 L D
Sodium 145
Potassium 5.2 H
Chloride 105
Carbon Dioxide 36 H
BUN 23 H
Creatinine 0.5 L
Glucose 230 H
Calcium 8.9
Total Bilirubin 0.9
AST 70 H
ALT 28
Alkaline Phosphatase 151 H
Vital Signs:
Vital Signs
Temp Pulse Resp BP Pulse Ox
97.7 F 105 10 95/58 98
07/07/23 23:11 07/08/23 05:00 07/08/23 05:00 07/08/23 01:00 07/08/23 05:00
I&O
07/07/23 07/08/23 07/09/23
06:59 06:59 06:59
Intake Total 315 / 315 1050 / 1050
Output Total 1460 / 1460 1855 / 1855
Balance -1145 / -1145 -805 / -805
Review of Systems
-
Unable to obtain full review of systems at this time due to: Acuity
[2023-07-08] MEDS: DUPHALAC/CHRONULAC 10 GRAMS TUBE ×2 (07:43→20:08)
[2023-07-08] MEDS: VITAMIN C 500 MG TUBE (07:43)
[2023-07-08] MEDS: NEURONTIN 600 MG TUBE ×2 (07:44→15:24)
[2023-07-08] MEDS: NSS (PRESERVATIVE FREE) 10 ML IV (07:44)
[2023-07-08] MEDS: LIORESAL 10 MG TUBE (07:45)
[2023-07-08] MEDS: EFFEXOR 75 MG TUBE ×2 (07:45→15:24)
[2023-07-08] MEDS: XIFAXAN 550 MG TUBE (07:45)
[2023-07-08] MEDS: DITROPAN 7.5 MG TUBE (07:45)
[2023-07-08] MEDS: PROTONIX IV 40 MG IV (07:45)
[2023-07-08] MEDS: MAGNESIUM OXIDE 500 MG TUBE (07:45)
[2023-07-08] MEDS: DESENEX/MITRAZOL/ZEASORB 1 APPLIC TOPICAL (07:46)
[2023-07-08] MEDS: SOLU-MEDROL PF 40 MG IV (07:46)
[2023-07-08] MEDS: LIDOCAINE 4% PATCH 1 PATCH TOPICAL (07:46)
--- NOTE | 2023-07-08 07:46 | W.PN.INTV ---
Today's Communication / Plan
Recommendations
Supplemental oxygen
Comfort a priority
Aspiration precautions
Adjust insulin
Continue antibiotics
Now full DNR-no CPR, defibrillation, or intubation
Palliative care/hospice discussions ongoing
Assessment
-
Mrs Dillon Ortez is a 57/W adm 07-03 with 1 d h/o dyspnea, productive cough, fever 101.4F and chills at home. Chronically ill patient with multitude of medical conditions, deconditioned, bed-wheelchair bound. Reported increasing ROYCE edema,
yellow discharge around G tube for 3-5 d. Found POx 75% on RA upon arrival and G 45 (took aspart insulin but did not get a chance to eat earlier at home), CXR with bilateral infiltrates, started on empiric meropenem
Acute hypoxemic resp failure
Bilateral pulm infiltrates/pneumonia
Toxic metabolic encephalopathy
Hypercapnia suspected
Aspiration risk
Leukocytosis
Anemia
Resolved lactic acidosis
Abnormal UA, through suprapubic catheter which is changed once a month
Sacral decubitus ulcer, chronic
Ileus
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
Asp pneumonia, CAUTI, adm 06-08 to , received meropenem and linezolid
Prolonged hospital stay 12/2022-03/2023.
Ventilator dependent respiratory failure/tracheostomy tube/eventually decannulated
Tracheal aspirate 02-16: +Ps aerug
MRSA PNA-bilateral extensive
MDRO UTI
Acute refractory hypoxemic respiratory failure on MV
Intubated 01/14/23; Extubated 01/19/23
Reintubated 01/27/23; Extubated 02/04/2023
Reintubated 02/06/2023
s/p Tracheostomy- 02/09/23
S/p exchange of tracheostomy due to airway leak on 02-25: 6 Shiley
s/p PEG 02-24
Severe bilateral lung disease, persistent likely has progressed to fibrosis
Covid x 2 neg 01/12 & 01/25/23, viral panel negative 01/14, sputum cx neg 01/14
s/p RHC 08- with PCWP 20, hyperdynamic CO/CI, moderate-sev PH
s/p bronchoscopy 01/27/23 no endobronchial abnls, bronch wash sent x 2
Chronic hypercarbic respiratory failure, ABG(s) 7.43/53, 7.41/60
Chronic PEG tube, scheduled for discontinuation by RAPHAEL EUCEDA on second week of July 2023 as the device is not in use
Suprapubic catheter in place
Neuropathy
Sciatica nerve pain
Cauda equina syndrome, wheelchair-bound
Hyperlipidemia
Hypertension
GERD
IBS, status post diversion colostomy
Portal hypertension/chronic LFT elevation/history of hepatic nonalcohol cirrhosis with TIPS
Fibromyalgia
RSD
Diabetes mellitus type 2
Nonhealing ulcers-decubitus
Lichen planus
Anxiety/depression
Chronic anemia
Sjogren's syndrome
Morbid obesity
Nonsmoker
Plan:
Continues to be critically ill on high FiO2, marginal saturations, tachycardia, agitated
Patient has had recurrent pneumonias, is known that her pulmonary parenchyma had evolved into fibrosis on CT Dec 2022
Supplemental oxygen as needed
High flow oxygen/BiPAP if needed/NIV if needed-V60
Patient has expressed to some healthcare worker she does not want reintubation, however, insists on intubation if needed
Patient now limited DNR-DO NOT INTUBATE
Chest x-ray 07/06/23-widespread bilateral alveolar opacifications with progression compared to 07/03/2023 representing worsening pneumonia and/or acute pulmonary edema
Nebulizers continue
Aspiration precautions per protocol
Mucolytic's
Mucus clearing devices if able
Check ABG with increased somnolence
Noninvasive ventilation if needed
Cultures reviewed-blood cultures negative
Urine culture 06/08/2023-Pseudomonas and Enterococcus
Urine culture 07/04/20237317-[id number]-[id number] bacilli
Sputum culture 07/06/2023-pending
Broad-spectrum antibiotics continue
Infectious disease following-correspondence reviewed
Urology consultation for suprapubic catheter change-07/07/2023
May need gastroenterology to change gastrostomy tube
Ileus suspected
Hold tube feeds for now
Agitation a real problem as was during previous admission
Patient was on ketamine-since discontinued
Ativan as needed
Oxycodone as needed-monitor for oversedation
Baclofen continues-chronic medication
Follow tachycardia-suspect related to infection, and agitation
Sacral wound care continues
DVT prophylaxis-on Lovenox
GI prophylaxis-on pantoprazole
Early nutrition
Early mobilization/physical therapy
Dr. Burns updated 07/06/2023 at length-updated on current clinical status, aspiration pneumonia, severe agitation, and potential need for intubation/trach/long-term ventilator- reports patient would not want long-term mechanical
ventilation/long term-suggested honoring her wishes of not intubation-he will 'think about it'-further discussions with public health social worker-
Dr. Burns also updated brother separately on 07/06/2023 at length-updated current clinical situation, comfort a priority, think about CODE STATUS, DNI, etc.
Dr. Burns updated 07/07/2023 at length-patient now DNI, they are thinking about full DNR, futility of coding the patient was reviewed with him. He will make a decision later today.
Dr. Burns updated again 07/08/2023-updated on clinical progress, now full DNR, leaning towards hospice care
Critical care statement: A total of 45 minutes of critical care time was provided for this patient today. This includes management of unstable vital signs, evaluation of the patient at bedside, reviewing the patient's pertinent medical records
including radiographs, pressor management, respiratory failure management, microbiology, laboratory evaluations, and discussion with primary team, consultants, pharmacy, nutrition, physical therapy, case management, charge nurse, critical care
nursing, and respiratory therapy.
Diagnostic tests:
CXR 07-03-23, PA/lat, c/w 06-08-23, current film underpenetrated but worsening of bilateral pulm infiltrates
Subjective Dataa
Subjective Data
Date of Service:
Date of Service: July 08, 2023
Chief Complaint: Brain Surgeon Follow Up
Subjective:
Intermittently agitated, no improvement, now ileus, agonal breathing, noncommunicative, review of systems unobtainable
Review of Systems
General: Other (Per HPI)
Objective Data
Data Reviewed
Vital Signs / I&O / Oxygen:
Vital Signs
Temp Pulse Resp BP Pulse Ox
97.7 F 105 10 95/58 98
07/07/23 23:11 07/08/23 05:00 07/08/23 05:00 07/08/23 01:00 07/08/23 05:00
Intake and Output
07/07/23 07/08/23 07/09/23
06:59 06:59 06:59
Intake Total 315 / 315 1050 / 1050
Output Total 1460 / 1460 1855 / 1855
Balance -1145 / -1145 -805 / -805
SaO2 98
Nasal Cannula flow liters per 50
minute
Physical Exam
General: Respiratory Distress (Mild)
HEENT: Normocephalic, Anicteric and Moist Mucous Membranes
Cardiovascular: Regular Rhythm (Tachycardia)
Respiratory: Wheeze (Forced expiratory), Crackles ( basilar), Rhonchi and Stridor (n)
GI: Soft, Non Distended and Non Tender
Neurology: Alert, No Motor Deficits and Other (agitated)
Skin: Dry, Good Color, Cyanosis (n) and Jaundice (n)
Labs/Micro/Reports
Lab Data
07/08/23 04:25
07/08/23 04:25
Laboratory Results
07/07/23
09:49
pH 7.32 L
pCO2 75 H*
pO2 61 L
HCO3 38.6 H
O2 Delivery Level
Microbiology
07/06/23 08:12 Sputum Respiratory Culture - Preliminary
Staphylococcus aureus
07/06/23 08:12 Sputum Gram Stain - Preliminary
07/03/23 23:05 Blood/Venous Blood Culture - Preliminary
No Growth in 4 days- Final report to follow
07/03/23 23:05 Blood/Venous Blood Culture - Preliminary
No Growth in 4 days- Final report to follow
07/03/23 23:05 Abdomen Wound Culture - Final
Staph aureus MRSA
Yeast
07/03/23 23:05 Abdomen Gram Stain - Final
07/04/23 00:03 Urine Urine Culture - Final
Pseudomonas aeruginosa
[2023-07-08] MEDS: PULMICORT 0.5 MG INH (08:00)
[2023-07-08] MEDS: DUONEB 3 ML INH ×3 (08:00→15:36)
--- NOTE | 2023-07-08 08:05 | PHA.VAN.FU ---
Vancomycin Assessment / Plan
- Assessment
Renal Function: SCR Decreasing
WBC's are: Stable
In the past 24 hrs, patient has been: Afebrile
Concomitant Antimicrobials: meropenem, azithromycin
- Assessment - Therapeutic Drug Monitoring
Random Level: 7.1 - drawn ~33.2H after previous level of 16
Calculated ke: 0.0245
Calculated half life (H): 28.3
Half-life, clearance appears to be improving
Half-life remains > 24H
- Dosing Plan
Dosing by Level: Re-dose today (Vanc 1500mg)
- Monitoring Plan
Random Level: 07/09 0600
- Follow Up
Pharmacy will continue to follow.
Vancomycin Follow UP
- -
Patient Age: 57
Patient Sex: Female
Vancomycin Day #: 5
Indication: Pulmonary/Respiratory
Requesting Provider: Lm
Pertinent Antimicrobial Allergies:
Sulfa = bleeding
Nitrofurantoin = oral ulcers
Vanco = 'I can't move or talk.'
Height / Weight:
Height 5 ft 7 in
Actual Weight 89.7 kg
IBW in k.6
Adjusted BW in k.4
Pertinent Past Medical History: BMI ~31, DM
- Vital Signs / Lab Results
Temp Pulse Resp BP Pulse Ox
97.7 F 102 32 95/58 98
07/07/23 23:11 07/08/23 08:03 07/08/23 08:03 07/08/23 01:00 07/08/23 08:04
Lab Results - Hematology
07/05/23 07/06/23 07/07/23
08:19 03:49 03:55
WBC 34.5 H 23.8 H 18.3 H
07/08/23
04:25
WBC 19.3 H
Lab Results - Chemistry
07/05/23 07/06/23 07/07/23
08:19 03:49 03:55
BUN 5 L 15 26 H
Creatinine 0.3 L 0.6 0.6
Estimated Creat Clear 120 120 118
Albumin 2.3 L 2.4 L 2.2 L
07/08/23
04:25
BUN 23 H
Creatinine 0.5 L
Estimated Creat Clear 118
Albumin 2.5 L
Microbiology Results
07/06/23 08:12 Respiratory Culture - Preliminary
Sputum Staphylococcus aureus
Gram Stain - Preliminary
07/03/23 23:05 Blood Culture - Preliminary
Blood/Venous No Growth in 4 days- Final report to follow
07/03/23 23:05 Blood Culture - Preliminary
Blood/Venous No Growth in 4 days- Final report to follow
07/03/23 23:05 Wound Culture - Final
Abdomen Staph aureus MRSA
Yeast
Gram Stain - Final
07/04/23 00:03 Urine Culture - Final
Urine Pseudomonas aeruginosa
Therapeutic Drug Monitoring
Vancomycin Peak 22.7 ug/ml (18-26) 07/05/23 22:27
Vancomycin Trough 16.9 ug/ml (5-20) 07/06/23 03:49
Random Vancomycin 7.1 ug/ml 07/08/23 04:25
[2023-07-08] MEDS: VANCOCIN 300 ML IV (10:40)
[2023-07-08] MEDS: VANCOCIN 300 MG IV (10:40)
--- NOTE | 2023-07-08 12:00 | PTCARENOTE ---
Received pt at 0700. Pt minimally responsive with agonal breathing on 50L 100% HFNC plus NRB. Sinus tach HR 105. Colostomy bag changed d/t hanging off. Large amount of leakage from around PEG site. TF remain on hold. S/P cath draining clear
norman.
Around 10am, pt became restless and moaning in pain. Pt's requested RN give meds. Discussed with him not wanting to over medicate d/t her breathing and poor color. Pt's behavior escalated. PRN Dilaudid given for CPOT of 7. Pt became
agonal and walker again. Explained to pt's agonal breathing and poor color. Mentioned comfort care. Pt's stated he was interested in switching her to comfort. Dr Vasquez notified and went to bedside to discuss.
--- NOTE | 2023-07-08 12:04 | W.PN.UPDATE ---
Update Note
Progress Note Update
Reevaluated patient at the bedside-patient uncomfortable and agitated, and then received Ativan and has agonal breathing
Reviewed with -he would like comfort care
We will respect family wishes and begin comfort care-continuous drip with intent to keep comfortable-example Dilaudid drip
Critical care nursing and critical care pharmacy notified
[2023-07-08] MEDS: FERROUS SULFATE ORAL LIQUID TUBE (12:14)
[2023-07-08] MEDS: LOPRESSOR PO (12:14)
[2023-07-08 12:17] LABS: Glucose - Point of Care 201 mg/dl (70-99)
[2023-07-08] MEDS: MORPHINE SULFATE 2 MG IV ×4 (13:01→23:53)
[2023-07-08] MEDS: MORPHINE 100 IV (13:02)
[2023-07-08] MEDS: NOVOLOG FLEXPEN-HIGH RESISTANCE SC (13:09)
--- NOTE | 2023-07-08 13:14 | W.PN.ID1 ---
Date of Service
Date of Service: July 08, 2023
Today's Communication
Poor prognosis.
Assessment / Plan
# Severe bilateral pneumonia
# Acute hypoxemic respiratory failure on HFNC, NRB mask
- sputum cx MRSA
- Continue IV Vancomycin (d5)
- Discontinue IV azithromycin (d4) for atypical coverage.
- Prognosis poor. Now DNR
# Possible CAUTI
-c/o SPC site pain at time of admission
- Ucx Pseudomonas
-SPC changed 07/08.
- Continue meropenem (d5 )
# Fever resolved
# leukocytosis stable
- blood cx's neg to date.
-Trend wbc.
#Additional Past Medical History:
DM
CHOI cirrhosis hx tips
Portal hypertension
Functional paraplegic
Neurogenic bladder with chronic suprapubic catheter
Fibromyalgia
GERD
HTN
Dyslipidemia
Depression/anxiety
Sciatica
GI bleed
IBS
Cauda equina syndrome
RSD
Chronic pain
Stage IV sacral decubitus s/p diverting ileostomy
Migraine
DJD
Sjogren syndrome
Ileostomy parastoma repair
Cholecystectomy
Laminectomy
toe amputations
Chief Complaint
-: Clinical Sepsis and Pneumonia
Subjective / Review of Systems
Lethargic.
Vital Signs / Physical Exam
Vital Signs
Vital Signs
Temp Pulse Resp BP Pulse Ox
98.2 F 103 28 114/63 97
07/08/23 11:21 07/08/23 11:54 07/08/23 11:54 07/08/23 09:00 07/08/23 11:56
Physical Exam
Constitutional: Acutely Ill and Chronically Ill
Cardiovascular: S1/S2 and Other (tachy)
Pulmonary: Rhonchi
Gastrointestinal: Soft, Non Tender and Non Distended
Genito-Urinary: Welch and Clear Urine
Extremities: Edema
Neurological: Other (Lethargic)
Objective Data
Lab Data
Lab Results
07/08/23 04:25
07/08/23 04:25
Estimated Creat Clear 118 ml/min 07/08/23 04:25
Lactic Acid 1.7 mmol/L (0.7-2.0) 07/04/23 04:40
Total Bilirubin 0.9 mg/dl (0.2-1.3) 07/08/23 04:25
AST 70 U/L (14-36) H 07/08/23 04:25
ALT 28 U/L (0-35) 07/08/23 04:25
Alkaline Phosphatase 151 U/L (38-126) H 07/08/23 04:25
Most recent labs reviewed.
Micro Results:
07/06/23 08:12 Respiratory Culture - Final
Sputum Staph aureus MRSA
Gram Stain - Final
07/03/23 23:05 Blood Culture - Preliminary
Blood/Venous No Growth in 4 days- Final report to follow
07/03/23 23:05 Blood Culture - Preliminary
Blood/Venous No Growth in 4 days- Final report to follow
07/03/23 23:05 Wound Culture - Final
Abdomen Staph aureus MRSA
Yeast
Gram Stain - Final
07/04/23 00:03 Urine Culture - Final
Urine Pseudomonas aeruginosa
07/03/23 CXR: Severe bilateral multifocal pneumonia, progressed.
07/05/23 CXR: Marked widespread bilateral predominantly alveolar opacification with progression in comparison to recent prior study, most likely representing worsening pneumonia or acute pulmonary edema.
--- NOTE | 2023-07-08 14:30 | CM ---
CM following re: discharge planning.
Discussed in Rounds, reviewed pt's chart, met with pt and spoke to pt's a few times. Per Rounds meeting, pt minimally responsive with agonal breathing on 50L 100% HFNC plus NRB.
Pt's approached me to talk to him regarding supporting his decision regarding requesting comfort care. Pt's stated she sees that pt is suffering, he has been updating on pt's progress by clinical team and he agrees that his spouse
suffering and he feels that comfort care will be the most appropriate level of care at this time. Emotional support offered and provided.
Pt's discussed his decision regarding comfort care with flatwork feeder and pt is on comfort care.
D/C plan: comfort care.
CM is available for emotional support.
--- NOTE | 2023-07-08 14:34 | W.PN.UPDATE ---
Update Note
Progress Note Update
Dr. Burns was again asked to go to the bedside for family update-the patient's brother arrived and was not happy with comfort care and wanted to try CPAP/BiPAP/noninvasive ventilation-he states that his daughter is a nurse practitioner and we have
not exhausted all means. I spoke to him a couple days ago and explained that short of intubation she was on very high FiO2 and CPAP/BiPAP was not a reliable alternative and noninvasive ventilation was a possibility, but, the machines were currently
used by other patients and I explained would only temporize the situation and prolong the inevitable. The who is also present during the entire conversation continue to want the patient only kept comfortable on a drip and not to try any
noninvasive ventilation at this time. The patient's fully understands that she has multiorgan dysfunction, poor quality of life even when she was at home which she verbalized and that the patient would not want additional poking and
prodding. The patient's brother seemed unhappy about this but wanted to support his [id number]. I told the on several occasions and again on this occasion that I did not want him to make any hasty decisions and that he had to be
comfortable with his decision 2 days from now, 2 weeks from now, 2 years from now and even 20 years from now. He understands and was comfortable with keeping her on the morphine drip and ongoing supportive care. I did explain at length that even
if she recovered with lengthy hospitalization, possible ventilator, repeat tracheostomy tube, rehab, etc. because of all her medical issues and severely debilitated state she had a very high risk of recurrent illnesses, hospitalizations and the
quality of her life moving forward would be quite poor. Once again the was in complete agreement and the brother was not. The brother did acknowledge that he does not live with her 22/12, understand her quality of life, just wanted
reassurance and a lucid moment from his sister explaining that she no longer wanted to fight the fight. Unfortunately the patient has not been lucid and not being able to communicate her immediate wishes. She did express on multiple occasions
during previous admissions that she did not want a ventilator, and was becoming tired of the fight. For now we will continue comfort care. We are relying on her spouse for decision making. He wants her a DNR, no intubation, no CPR, no
defibrillation, no mechanical ventilation, and no noninvasive, CPAP, BiPAP and wants a morphine drip.
[2023-07-08] MEDS: DAKIN'S SOLUTION 0.125% 1/4 STRENGTH 1 ML TOPICAL (15:24)
[2023-07-08] MEDS: LOVENOX 40 MG SC (17:53)
[2023-07-08] MEDS: LIPITOR 10 MG TUBE (17:53)
[2023-07-08] MEDS: NOVOLOG FLEXPEN-HIGH RESISTANCE 4 UNITS SC (17:53)
--- NOTE | 2023-07-08 18:05 | PTCARENOTE ---
Morphine gtt at 2mg/hr. Pt appears comfortable.
[2023-07-08 18:08] LABS: Glucose - Point of Care 221 mg/dl (70-99)
--- NOTE | 2023-07-08 22:00 | PTCARENOTE ---
was called and updated that patient will be moved to [facility].
--- NOTE | 2023-07-08 23:00 | TRANSFER ---
Report received from CYNDY Núñez. Pt transferred from ICU, no family at the bedside currently. PRN Morphine given for dyspnea, see JUL.
[2023-07-09] MEDS: MORPHINE SULFATE 2 MG IV ×4 (04:02→10:02)
[2023-07-09 07:15] VITALS: BP 130/66
[2023-07-09] MEDS: DUPHALAC/CHRONULAC 10 GRAMS TUBE (08:23)
[2023-07-09] MEDS: LIDOCAINE 4% PATCH 1 PATCH TOPICAL (08:23)
[2023-07-09] MEDS: NSS (PRESERVATIVE FREE) 0.5 ML IV (08:24)
[2023-07-09] MEDS: ATIVAN 1 MG IV (08:24)
[2023-07-09] MEDS: TYLENOL 650 MG TUBE ×2 (08:24→13:25)
[2023-07-09] MEDS: ROBINUL 0.200000000000000011 MG IV ×2 (08:25→13:24)
--- NOTE | 2023-07-09 09:09 | CM ---
Pt remains on Comfort care.
agrees with Comfort Care no intubation.
On 15 liter non rebreather Po 96 %.
Pt not lucid.
Morphine and Ativan as needed.
Suprapubic cath.
PLAN Continue Comfort Care
[2023-07-09] MEDS: TRANSDERM-SCOP 1 PATCH TRANSDERM (10:01)
--- NOTE | 2023-07-09 11:02 | W.PN.HOSP.TC ---
Today's Communication/Plan
-
Continue comfort measures
Add scopolamine patch for secretions
Assessment / Plan
Assessment / Plan
Gen-unresponsive
HEENT-NC, AT, anicteric, clear oral mm
Neck-supple
CV-reg, no M, +S1/S2
Lungs-clear B/L
Abd-soft, NT, ND
Ext-no edema
Musculoskeletal-no cyanosis, clubbing
Skin-warm and dry
Acute TME -due to critical illness, hypoxia, etc., she remains unresponsive. She is actively dying.
Acute hypoxic respiratory failure -currently on 10 L of oxygen.
Severe sepsis POA with lactic acidosis -now off antibiotics given comfort measures. She is actively dying.
Bilateral pulm infiltrates consistent with acute pneumonia, likely aspiration
Pulmonary fibrosis from prior aspiration PNA episodes
Chronic hypercarbic respiratory failure
CAUTI
Chronic suprapubic catheter
Chronic PEG tube
Neuropathy
Sciatica nerve pain
Cauda equina syndrome, wheelchair-bound
Fibromyalgia
RSD
Sjogren's syndrome
Chronic anemia
Hyperlipidemia
Essential hypertension
GERD
IBS, status post diversion colostomy
Portal hypertension/chronic LFT elevation/history of hepatic nonalcohol cirrhosis with TIPS
Diabetes mellitus type 2
Anxiety/depression
Stage 4 sacral decubitus ulcer
- wound care
DNR
Dispo -continue comfort measures. Continue morphine drip and titrate for comfort. Discussed with nurse and hospice team. at the bedside and is agreeing with current plan of care.
Anticipated Discharge: Today
Subjective/Interval History
-
Date of Service: July 09, 2023
Patient seen and examined. at the bedside. She remains comatose, agonal breathing.
Objective Data
-
Vital Signs:
Vital Signs
Temp Pulse Resp BP Pulse Ox
102.0 F H 139 9 130/66 86
07/09/23 07:15 07/09/23 07:15 07/09/23 07:15 07/09/23 07:15 07/09/23 07:15
I&O
07/08/23 07/09/23 07/10/23
06:59 06:59 06:59
Intake Total 1050 / 1050 252 / 252
Output Total 1855 / 1855 1200 / 1200
Balance -805 / -805 -948 / -948
Review of Systems
-
Unable to obtain full review of systems at this time due to: Acuity
[2023-07-09] MEDS: TYLENOL ORAL SOLUTION 650 MG TUBE (11:34)
[2023-07-09] MEDS: MORPHINE SULFATE 4 MG IV ×3 (11:35→13:25)
--- NOTE | 2023-07-09 13:52 | PTCARENOTE ---
Patient with no heart or lung sounds on auscultation. biological science technician at bedside, made aware to come to room.
--- NOTE | 2023-07-09 13:57 | W.PN.DEATH ---
Pronouncement of
-
Called to see patient to pronounce.
No spontaneous heart tones or respirations noted.
Patient not responsive to verbal stimuli.
Patient is pronounced .
Time of : 13:45
Date of : 07/09/23
Cause of : pulmonary fibrosis, aspiration pneumonia, respiratory failure
Family Notified: Yes
--- NOTE | 2023-07-09 16:35 | PTCARENOTE ---
Postmortem care performed; suprapubic catheter and L midline removed, PEG tube and colostomy appliance left in place. Wound care and hygiene provided, patient's belongings labeled and sent with patient out of room. [facility] notified.
== END 2023-07-09 16:35 | disposition expired | DRG 871 ==
LOC: 2 NORTH 23:28
PROVIDERS: Clinical Nurse Specialist Family Health; Internal Medicine; Internal Medicine Critical Care Medicine; Nurse Practitioner Primary Care; Student in an Organized Health Care Education/Training Program; ADMITTING PHYSICIAN Internal Medicine; ATTENDING PHYSICIAN Hospitalist; CONSULT PHYSICIAN Internal Medicine Pulmonary Disease; EMERGENCY PHYSICIAN Emergency Medicine; FAMILY PHYSICIAN Internal Medicine; OTHER PHYSICIAN Internal Medicine Infectious Disease
DX: A41.9 Sepsis, unspecified organism (principal); G92.8 Other toxic encephalopathy; L89.223 Pressure ulcer of left hip, stage 3; L89.213 Pressure ulcer of right hip, stage 3; J69.0 Pneumonitis due to inhalation of food and vomit; L89.154 Pressure ulcer of sacral region, stage 4; J96.21 Acute and chronic respiratory failure with hypoxia; T83.518A Infection and inflammatory reaction due to other urinary catheter, initial encounter; N39.0 Urinary tract infection, site not specified; F11.20 Opioid dependence, uncomplicated; E87.20 Acidosis, unspecified; G83.4 Cauda equina syndrome; Z16.24 Resistance to multiple antibiotics; K76.6 Portal hypertension; Z99.11 Dependence on respirator [ventilator] status; Z99.3 Dependence on wheelchair; G89.4 Chronic pain syndrome; M79.7 Fibromyalgia; E11.40 Type 2 diabetes mellitus with diabetic neuropathy, unspecified; I10 Essential (primary) hypertension; K58.9 Irritable bowel syndrome, unspecified; M35.00 Sjogren syndrome, unspecified; K75.81 Nonalcoholic steatohepatitis (NASH); K74.60 Unspecified cirrhosis of liver; G25.81 Restless legs syndrome; E78.5 Hyperlipidemia, unspecified; E88.09 Other disorders of plasma-protein metabolism, not elsewhere classified; E66.01 Morbid (severe) obesity due to excess calories; Z68.33 Body mass index [BMI] 33.0-33.9, adult; Z93.1 Gastrostomy status; Y84.6 Urinary catheterization as the cause of abnormal reaction of the patient, or of later complication, without mention of misadventure at the time of the procedure; K21.9 Gastro-esophageal reflux disease without esophagitis; F32.A Depression, unspecified; F41.9 Anxiety disorder, unspecified; F44.4 Conversion disorder with motor symptom or deficit; Z66 Do not resuscitate; R65.20 Severe sepsis without septic shock; Z93.59 Other cystostomy status; Z51.5 Encounter for palliative care; D64.9 Anemia, unspecified; Z93.3 Colostomy status; L43.9 Lichen planus, unspecified
CPT/HCPCS: 36600; 71045; 71046; 80053; 80202; 81003; 81015; 82805; 82962; 83605; 83880; 84484; 85025; 87040; 87070; 87077; 87086; 87147; 87186; 87205; 92610; 93005; 94640; 96374; 96375; 99291; J2185